=== PATIENT | female | born 1930 | race Caucasian/White ===

== ENCOUNTER 2017-10-28 11:25 | Emergency (ER) | payer MEDICARE, BC ==
[2017-10-28] MEDS ORDERED: traMADol 50 MG Tab PO ONE (11:26)
[2017-10-28 11:29] VITALS: BP 144/79
--- NOTE | 2017-10-28 11:57 | EDM.PDOC ---
ED HPI GENERAL MEDICAL PROBLEM - General Chief Complaint: Lower Extremity Injury/Pain Stated Complaint: left leg pain Time Seen by Provider: 10/28/17 11:40 Source of Information: Reports: Patient History Limitations: Reports: No Limitations - History of Present Illness INITIAL COMMENTS - FREE TEXT/NARRATIVE: Patient presents with left hip pain. States awoke from sleep today with pain. Has been having ongoing pain now and difficulty walking as a result. Has not had any recent falls or trauma. Does not lie on this side when she sleeps at all but feels pain with pushing on the left hip. She has hydrocodone at home but states does make her feel sick all over. She has not been travelling recently. Has not noted any swelling in her leg. Has arthritis in her joints. 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 No other changes as of late. Onset: Today, Sudden Duration: Hour(s): Location: Reports: Lower Extremity, Left Quality: Reports: Throbbing Severity: Moderate Improves with: Reports: Rest Worsens with: Reports: Movement Associated Symptoms: Reports: No Other Symptoms Left Leg Pain Score (Numeric/FACES): 7 - Related Data Allergies Allergy/AdvReac Type Severity Reaction Status Date / Time acetaminophen Allergy Stomach Verified 10/28/17 11:29 [From Darvocet-N 100] Upset propoxyphene napsylate Allergy Stomach Verified 10/28/17 11:29 [From Darvocet-N 100] Upset quinapril HCl [From Accupril] Allergy Cough Verified 10/28/17 11:29 rofecoxib [From Vioxx] Allergy Airway Verified 10/28/17 11:29 Tightness shellfish derived Allergy Cannot Verified 10/28/17 11:29 Remember sulfamethoxazole Allergy Dizziness Verified 10/28/17 11:29 [From Bactrim] trimethoprim [From Bactrim] Allergy Dizziness Verified 10/28/17 11:29 Home Meds: Home Meds Ca Cmb No.1/Vit D3/B-6/FA/B12 [Vitamin D3 1,000 Unit] 2,000 unit PO DAILY [History] Losartan [Cozaar] 100 mg PO DAILY 11/11/13 [History] Olopatadine [Patanol 0.1% Ophth Soln] 1 drop EYEBOTH BEDTIME PRN 11/11/13 [ History] Simvastatin [Zocor] 20 mg PO BEDTIME 11/11/13 [History] Diltiazem HCl [Diltiazem 24Hr ER] 120 mg PO DAILY 02/08/14 [History] Cyanocobalamin (Vitamin B12) [Vitamin B12] 1,000 mcg IM Q60D 02/26/14 [History] Potassium Chloride 20 meq PO DAILY 02/26/14 [History] Apixaban [Eliquis] 2.5 mg PO BID 08/23/14 [History] Sucralfate [Carafate] 1 gm PO BEDTIME 08/23/14 [History] hydrALAZINE [Apresoline] 25 mg PO TID PRN 08/23/14 [History] Albuterol Sulfate 3 ml INH Q4H PRN 10/28/17 [History] Albuterol Sulfate [Proair Hfa] 2 puff INH BID PRN 10/28/17 [History] Isosorbide Mononitrate [Imdur] 60 mg PO DAILY 10/28/17 [History] Metoprolol Tartrate 50 mg PO BID 10/28/17 [History] Pantoprazole Sodium 40 mg PO DAILY 10/28/17 [History] Triamcinolone Acetonide [Nasacort] 1 spray NASBOTH DAILY PRN 10/28/17 [History] Past Medical History HEENT History: Reports: Cataract, Hard of Hearing Cardiovascular History: Reports: Arrhythmia, Heart Murmur, High Cholesterol, Hypertension Respiratory History: Reports: Asthma Gastrointestinal History: Reports: None Genitourinary History: Reports: UTI, Recurrent Musculoskeletal History: Reports: Arthritis, Fracture, Osteoarthritis, Osteoporosis Psychiatric History: Reports: None Endocrine/Metabolic History: Reports: Osteoporosis, Vitamin D Deficiency Hematologic History: Reports: B12 Deficiency Oncologic (Cancer) History: Reports: None - Infectious Disease History Infectious Disease History: Reports: Chicken Pox, Shingles - Past Surgical History GI Surgical History: Reports: Benedicto Fundoplication Oncologic Surgical History: Reports: Biopsy of Breast Social & Family History - Family History Family Medical History: Noncontributory - Tobacco Use Smoking Status *Q: Never Smoker Second Hand Smoke Exposure: No - Caffeine Use Caffeine Use: Reports: Coffee - Alcohol Use Days Per Week of Alcohol Use: 0 - Recreational Drug Use Recreational Drug Use: No Review of Systems - Review of Systems Review Of Systems: See Below Constitutional: Reports: No Symptoms Eyes: Reports: No Symptoms Ears: Reports: No Symptoms Nose: Reports: No Symptoms Mouth/Throat: Reports: No Symptoms Respiratory: Reports: No Symptoms Cardiovascular: Reports: No Symptoms GI/Abdominal: Reports: No Symptoms Musculoskeletal: Reports: Leg Pain, Joint Pain Skin: Reports: No Symptoms Neurological: Reports: No Symptoms Psychiatric: Reports: No Symptoms ED EXAM, GENERAL - Physical Exam Exam: See Below Exam Limited By: No Limitations General Appearance: Alert, WD/WN, No Apparent Distress Neck: Normal Inspection, Supple, Non-Tender, Full Range of Motion Respiratory/Chest: No Respiratory Distress, Lungs Clear, Normal Breath Sounds Cardiovascular: Regular Rate, Rhythm Extremities: Normal Inspection, Limited Range of Motion (pain with adduction and flexion of left hip). No: Pedal Edema Neurological: Alert, Oriented Psychiatric: Normal Affect, Normal Mood Skin Exam: Warm, Dry Course - Vital Signs Last Recorded V/S: Last Vital Signs Temp 98.3 F 10/28/17 11:26 Pulse 54 L 10/28/17 11:26 Resp 20 10/28/17 11:26 BP 144/79 H 10/28/17 11:26 Pulse Ox 97 10/28/17 11:26 - Orders/Labs/Meds Orders: Active Orders 24 hr Category Date Time Status Hip Min 2V or 3V w Pelvis Lt [CR] Stat Exams 10/28/17 11:51 Taken - Re-Assessments/Exams Free Text/Narrative Re-Assessment/Exam: 10/28/17 12:29 Patient xrays do not show any new acute changes. Discussed pursuing injection in hip tomorrow by Dr. Lay or hip injection through radiology. Possible PT. Wants to try tramadol or use her hydrocodone for pain first and see how she does. Unable to take NSAIDs due to pain as she is on Eliquis and doesn't tolerate them. Departure - Departure Time of Disposition: 12:30 Disposition: Home, Self-Care 01 Condition: Fair Clinical Impression: Trochanteric bursitis of left hip - Discharge Information Forms: ED Department Discharge Additional Instructions: 1. Rest 2. Aspercreme to hip as needed 3. Consider injection or Physical therapy for resolution of discomfort 4. Tramadol 50mg 1-2 tabs every 6 hours as needed for pain 5. Use hydrocodone for more severe pain if tolerate 6. Contact clinic tomorrow if would like to proceed with either injection or PT or if any questions. - My Orders Last 24 Hours: My Active Orders 10/28/17 11:51 Hip Min 2V or 3V w Pelvis Lt [CR] Stat - Assessment/Plan Last 24 Hours: My Active Orders 10/28/17 11:51 Hip Min 2V or 3V w Pelvis Lt [CR] Stat
[2017-10-28] MEDS ORDERED: Take Home: traMADol 50 MG, 4 Tab Pack PO ONE (12:30)
== END 2017-10-28 12:40 | disposition home or self-care (01) ==
LOC: CC.ED 11:25
DX: M70.62 Trochanteric bursitis, left hip (principal); E78.00 Pure hypercholesterolemia, unspecified; I10 Essential (primary) hypertension; J45.909 Unspecified asthma, uncomplicated; Z88.2 Allergy status to sulfonamides; Z91.013 Allergy to seafood
CPT/HCPCS: 73502; 99283; A9270

== ENCOUNTER 2017-12-31 11:35 | Observation (INO) | payer MEDICARE, BC ==
[2017-12-31] MEDS ORDERED: Acetaminophen 325 MG Tab PO PRN (12:13)
[2017-12-31] MEDS ORDERED: Sodium Chloride 0.9% 10 ML Syringe FLUSH PRN (12:13)
[2017-12-31] MEDS ORDERED: Ondansetron 4 MG Tab.DIS PO PRN (12:13)
[2017-12-31] MEDS ORDERED: Ondansetron 4 MG/2 ML SDV IV PRN (12:13)
[2017-12-31] MEDS ORDERED: cloNIDine 0.1 MG Tab PO PRN (12:13)
[2017-12-31 12:51] LABS: CHLORIDE,CL 104 mEq/L (98-106); SODIUM,NA 139 mEq/L (136-145)
[2017-12-31] MEDS: Enoxaparin 40 MG/0.4 ML Syringe SUBCUT SCH (13:24)
[2017-12-31] MEDS ORDERED: Albuterol 0.042% 1.25 MG/3 ML Neb Soln INH PRN (19:09)
[2017-12-31] MEDS ORDERED: [UNRECOGNIZED DRUG - REMARK] EYEBOTH PRN (19:09)
[2017-12-31] MEDS ORDERED: Acetaminophen 500 MG Tab PO PRN (19:09)
[2017-12-31] MEDS ORDERED: Albuterol 8 GM Inhaler INH PRN (19:09)
[2017-12-31] MEDS: Apixaban 5 MG Tab PO SCH (20:11)
[2017-12-31] MEDS: Simvastatin 20 MG Tab PO SCH (20:12)
[2017-12-31] MEDS: Metoprolol Tartrate 50 MG Tab PO SCH (20:12)
[2017-12-31] MEDS: Sucralfate 1 GM Tab PO SCH (20:12)
[2017-12-31] MEDS: Pantoprazole 40 MG Tab.CR PO SCH (20:38)
[2018-01-01] MEDS ORDERED: Diltiazem 120 MG Cap.CD PO SCH (08:00)
[2018-01-01] MEDS: Losartan 100 MG Tab PO SCH (08:18)
[2018-01-01] MEDS: Isosorbide Mononitrate 60 MG Tab.ER PO SCH (08:19)
[2018-01-01] MEDS: Metoprolol Tartrate 50 MG Tab PO SCH ×3 (08:44→19:28)
[2018-01-01] MEDS: Fluticasone Propionate Nasal Spray 16 GM Bottle NASBOTH SCH (08:45)
[2018-01-01] MEDS: Potassium Chloride 10 MEQ Tab.ER PO SCH (11:06)
[2018-01-01] MEDS: Aspirin 81 MG Tab.EC PO SCH (11:06)
[2018-01-01] MEDS: Apixaban 5 MG Tab PO SCH ×2 (11:06→19:29)
[2018-01-01] MEDS: Enoxaparin 40 MG/0.4 ML Syringe SUBCUT SCH (11:07)
--- NOTE | 2018-01-01 12:01 | PCM.PN ---
- General Info Date of Service: 01/01/18 Admission Dx/Problem (Free Text): Hypertensive Urgency Functional Status: Reports: Pain Controlled, Tolerating Diet, Ambulating - Review of Systems General: Denies: Fever, Weakness, Fatigue HEENT: Reports: Headaches. Denies: Ear Pain, Sinus Congestion Pulmonary: Denies: Shortness of Breath, Cough Cardiovascular: Denies: Chest Pain, Edema, Lightheadedness Gastrointestinal: Denies: Abdominal Pain, Decreased Appetite, Nausea, Vomiting Genitourinary: Reports: No Symptoms Musculoskeletal: Reports: No Symptoms Skin: Reports: No Symptoms Neurological: Reports: No Symptoms - Patient Data Vitals - Most Recent: Last Vital Signs Temp 98.5 F 01/01/18 08:00 Pulse 54 L 01/01/18 09:35 Resp 16 01/01/18 08:00 BP 200/84 H 01/01/18 09:35 Pulse Ox 98 01/01/18 08:00 Weight - Most Recent: 93 lb Lab Results Last 24 Hours: Laboratory Results - last 24 hr 12/31/17 12/31/17 Range/Units 12:30 12:30 WBC 4.3 L (5.0-10.0) 10^3/uL RBC 3.83 L (4.00-5.50) 10^6/uL Hgb 11.3 L (12.0-16.0) g/dL Hct 35.2 L (37.0-47.0) % MCV 91.9 (82.0-94.0) fL MCH 29.5 (27.0-32.0) pg MCHC 32.1 L (33.0-38.0) g/dL RDW Coeff of [place] 13.4 (11.0-15.0) % Plt Count 185 (150-400) 10^3/uL Neut % (Auto) 59.8 (35-85) % Lymph % (Auto) 27.3 (10-55) % [place] % (Auto) 8.9 (0-16) % Eos % (Auto) 3.3 (0-5) % Baso % (Auto) 0.7 (0-3) % Neut # (Auto) 2.57 (1.80-7.00) 10^3/uL Lymph # (Auto) 1.17 (1.00-4.80) 10^3/uL [place] # (Auto) 0.38 (0.00-0.80) 10^3/uL Eos # (Auto) 0.14 (0.00-0.45) 10^3/uL Baso # (Auto) 0.03 10^3/uL Sodium 139 (136-145) mEq/L Potassium 3.9 (3.5-5.0) mEq/L Chloride 104 (98-106) mEq/L Carbon Dioxide 27 (21-32) mmol/L BUN 11 (7-18) mg/dL Creatinine 0.8 (0.6-1.0) mg/dL Est Cr Clr Drug Dosing 34.24 mL/min Estimated GFR (MDRD) > 60 (>=60) mL/min Glucose 115 H (75-99) mg/dL Calcium 9.1 (8.4-10.1) mg/dL Troponin I < 0.017 (0.00-0.06) ng/mL Med Orders - Current: Current Medications Acetaminophen (Tylenol) 650 mg PO Q4H PRN PRN Reason: Pain (Mild 1-3)/fever Acetaminophen (Tylenol Extra Strength) 500 mg PO Q6H PRN PRN Reason: Pain/Fever Albuterol (Proventil Neb Soln) 1.25 mg INH Q4H PRN PRN Reason: Dyspnea Albuterol (Ventolin Hfa) 0 gm INH BID PRN PRN Reason: Dyspnea Amlodipine Besylate (Norvasc) 5 mg PO BEDTIME [facility] Apixaban (Eliquis) 2.5 mg PO BID [facility] Last Admin: 01/01/18 11:06 Dose: 2.5 mg Aspirin (Halfprin) 81 mg PO DAILY [facility] Last Admin: 01/01/18 11:06 Dose: 81 mg Clonidine HCl (Catapres) 0 mg PO Q2H PRN PRN Reason: Hypertension Last Admin: 12/31/17 12:41 Dose: 0.1 mg Enoxaparin Sodium (Lovenox) 40 mg SUBCUT DAILY@1200 [facility] Last Admin: 01/01/18 11:07 Dose: 40 mg Fluticasone Propionate (Flonase) 0 gm NASBOTH DAILY [facility] Last Admin: 01/01/18 08:45 Dose: Not Given Isosorbide Mononitrate (Imdur) 60 mg PO DAILY [facility] Last Admin: 01/01/18 08:19 Dose: 60 mg Losartan Potassium (Cozaar) 100 mg PO DAILY [facility] Last Admin: 01/01/18 08:18 Dose: 100 mg Metoprolol Tartrate (Lopressor) 50 mg PO BID [facility] Last Admin: 01/01/18 09:35 Dose: 50 mg Non-FormPatanol (0.1% Ophth Soln) 0 drop EYEBOTH BEDTIME PRN PRN Reason: Pain Ondansetron HCl (Zofran Odt) 4 mg PO Q4H PRN PRN Reason: nausea, able to take PO Ondansetron HCl (Zofran) 4 mg IV Q4H PRN PRN Reason: Nausea/Vomiting Pantoprazole Sodium (Protonix) 40 mg PO BEDTIME [facility] Last Admin: 12/31/17 20:38 Dose: 40 mg Potassium Chloride (Klor-Con 10) 20 meq PO DAILY [facility] Last Admin: 01/01/18 11:06 Dose: 20 meq Simvastatin (Zocor) 20 mg PO BEDTIME [facility] Last Admin: 12/31/17 20:12 Dose: Not Given Sodium Chloride (Saline Flush) 10 ml FLUSH ASDIRECTED PRN PRN Reason: Keep Vein Open Sucralfate (Carafate) 1 gm PO BEDTIME [facility] Last Admin: 12/31/17 20:12 Dose: 1 gm Discontinued Medications Diltiazem HCl (Cardizem Cd) 120 mg PO DAILY [facility] Last Admin: 01/01/18 08:19 Dose: 120 mg - Exam General: Alert, Oriented HEENT: Mucous Membr. Moist/[place] Neck: Supple Lungs: Clear to Auscultation, Normal Respiratory Effort Cardiovascular: Regular Rate, Regular Rhythm GI/Abdominal Exam: Normal Bowel Sounds, Soft, Non-Tender Extremities: Normal Inspection, No Pedal Edema Skin: Warm, Dry Neurological: No New Focal Deficit - Problem List & Annotations (1) Hypertensive urgency SNOMED Code(s): 695357729 Code(s): I16.0 - HYPERTENSIVE URGENCY Status: Acute Priority: High Current Visit: Yes - Problem List Review Problem List Initiated/Reviewed/Updated: Yes - My Orders Last 24 Hours: My Active Orders 12/31/17 12:13 Patient Status [ADT] Routine Oxygen Therapy [RC] .PRN Up ad Mi [RC] .PRN Chest 2V [CR] Stat Acetaminophen [Tylenol] 650 mg PO Q4H PRN Ondansetron [Zofran ODT] 4 mg PO Q4H PRN Ondansetron [Zofran] 4 mg IV Q4H PRN Sodium Chloride 0.9% [Saline Flush] 10 ml FLUSH ASDIRECTED PRN cloNIDine [Catapres] See Dose Instructions PO Q2H PRN Saline Lock Insert [OM.PC] Routine 12/31/17 12:15 Cardiac Monitoring [RC] 0800,199912/31/17 12:30 Enoxaparin [Lovenox] 40 mg SUBCUT DAILY@1200 12/31/17 Lunch 2 Gram Sodium Diet [DIET] 01/01/18 10:00 VL Duplex Renal Comp [US] Routine 01/01/18 12:00 Vital Signs [RC] 0000,0400,0800,1200,1599,199901/01/18 20:00 amLODIPine [Norvasc] 5 mg PO BEDTIME - Assessment Assessment:: Hypertensive urgency - Plan Plan:: Patient feeling better today. States has been experiencing headaches when her blood pressure has been high. This am, pulse in the 50s but systolic blood pressure continues to be high, over 200. Patient is currently on 4 blood pressure meds, was given additional Clonidine yesterday with a huge drop in her blood pressure. Was asymptomatic during this time. Labs normal. Is having renal artery ultrasound this am. Will stop patient's Cardizem. Continue Losartan, ImDur and Metoprolol and add Norvasc at night. Continue to monitor. Probable discharge in am.
[2018-01-01] MEDS: Sucralfate 1 GM Tab PO SCH (19:28)
[2018-01-01] MEDS: Pantoprazole 40 MG Tab.CR PO SCH (19:30)
[2018-01-01] MEDS ORDERED: amLODIPine 10 MG Tab PO SCH (20:00)
[2018-01-01] MEDS: Simvastatin 20 MG Tab PO SCH (21:04)
[2018-01-02] MEDS: Apixaban 5 MG Tab PO SCH (07:44)
[2018-01-02] MEDS: Metoprolol Tartrate 50 MG Tab PO SCH (07:45)
[2018-01-02] MEDS: Isosorbide Mononitrate 60 MG Tab.ER PO SCH (07:45)
[2018-01-02] MEDS: Potassium Chloride 10 MEQ Tab.ER PO SCH (07:45)
[2018-01-02] MEDS: Losartan 100 MG Tab PO SCH (07:45)
[2018-01-02] MEDS: Fluticasone Propionate Nasal Spray 16 GM Bottle NASBOTH SCH (07:46)
[2018-01-02] MEDS: Aspirin 81 MG Tab.EC PO SCH (07:46)
[2018-01-02] MEDS: Enoxaparin 40 MG/0.4 ML Syringe SUBCUT SCH (11:46)
[2018-01-02 12:58] VITALS: BP 154/67
--- NOTE | 2018-01-02 15:31 | PCM.DCSUM1 ---
Discharge Summary - Hospital Course Free Text/Narrative:: Patient admitted from clinic by Dr. Lay with hypertensive urgency. Routinely monitors her blood pressure at home and had been doing well until 4 days prior to admission. Patient states she feels "off" when her blood pressure is up. Had been experiencing headaches, but no chest pain or shortness of breath. Does routinely check her blood pressure at home and systolic blood pressure is up over 200. She was admitted for further work up, EKG, chest xray and labs. Renal artery ultrasound ordered. Labs all essentially negative on admit. - Discharge Data Discharge Date: 01/02/18 Discharge Disposition: Home, Self-Care 01 Condition: Good - Discharge Diagnosis/Problem(s) (1) Hypertensive urgency SNOMED Code(s): 473811384 ICD Code: I16.0 - HYPERTENSIVE URGENCY Status: Acute Priority: High - Patient Summary/Data Complications: none Hospital Course: Patient admitted for further work up for hypertensive urgency. She did have a clonidine on admit and had significant drop in her blood pressure. She feels good. No further headaches. Did adjust blood pressure medications, stopped Cardizem and started Norvasc. Renal artery ultrasound done which does not show stenosis. Labs all normal. Systolic blood pressure is now around 170. Will discharge home on Norvasc and her usual blood pressure meds, stop Cardizem. Follow up with Dr. Lay on Sunday. Can use clonidine if blood pressure gets over 200 at home. - Patient Instructions Diet: Low Sodium Activity: As Tolerated - Discharge Plan Prescriptions/Med Rec: amLODIPine Besylate [Amlodipine Besylate] 5 mg PO DAILY #30 tablet cloNIDine [Catapres] 0.1 mg PO Q2H PRN #30 tablet PRN Reason: Hypertension Home Medications: Home Meds Ca Cmb No.1/Vit D3/B-6/FA/B12 [Vitamin D3 1,000 Unit] 2,000 unit PO DAILY [History] Losartan [Cozaar] 100 mg PO DAILY 11/11/13 [History] Olopatadine [Patanol 0.1% Ophth Soln] 1 drop EYEBOTH BEDTIME PRN 11/11/13 [ History] Simvastatin [Zocor] 20 mg PO BEDTIME 11/11/13 [History] Cyanocobalamin (Vitamin B12) [Vitamin B12] 1,000 mcg IM Q60D 02/26/14 [History] Potassium Chloride 20 meq PO DAILY 02/26/14 [History] Apixaban [Eliquis] 2.5 mg PO BID 08/23/14 [History] Sucralfate [Carafate] 1 gm PO BEDTIME 08/23/14 [History] Albuterol Sulfate 3 ml INH Q4H PRN 10/28/17 [History] Albuterol Sulfate [Proair Hfa] 2 puff INH BID PRN 10/28/17 [History] Isosorbide Mononitrate [Imdur] 60 mg PO DAILY 10/28/17 [History] Metoprolol Tartrate 50 mg PO BID 10/28/17 [History] Pantoprazole Sodium 40 mg PO DAILY 10/28/17 [History] Acetaminophen [Tylenol Extra Strength] 500 mg PO Q6H PRN 12/31/17 [History] Aspirin [Lo-Dose Aspirin EC] 81 mg PO DAILY 12/31/17 [History] Triamcinolone Acetonide [Nasacort AQ [place]] 1 spray RUCHI DAILY 12/31/17 [History] amLODIPine Besylate [Amlodipine Besylate] 5 mg PO DAILY #30 tablet 01/02/18 [Rx] cloNIDine [Catapres] 0.1 mg PO Q2H PRN #30 tablet 01/02/18 [Rx] Patient Handouts: Hypertension Referrals: Rock Lay MD [Primary Care Provider] - (See Dr. Lay in [place] on Sunday) - Discharge Summary/Plan Comment DC Time >30 min.: No - General Info Date of Service: 01/02/18 Admission Dx/Problem (Free Text: Hypertensive Urgency Functional Status: Reports: Pain Controlled, Tolerating Diet, Ambulating - Review of Systems General: Reports: No Symptoms HEENT: Denies: Ear Pain, Sinus Congestion, Rhinitis Pulmonary: Denies: Shortness of Breath, Cough, Wheezing Cardiovascular: Denies: Chest Pain, Edema, Lightheadedness Gastrointestinal: Denies: Abdominal Pain, Nausea, Vomiting Genitourinary: Reports: No Symptoms Musculoskeletal: Reports: No Symptoms Skin: Reports: No Symptoms Neurological: Reports: No Symptoms - Patient Data Vitals - Most Recent: Last Vital Signs Temp 98.2 F 01/02/18 12:00 Pulse 61 01/02/18 12:00 Resp 16 01/02/18 12:00 BP 154/67 H 01/02/18 12:00 Pulse Ox 96 01/02/18 12:00 Weight - Most Recent: 93 lb Med Orders - Current: Current Medications Discontinued Medications Acetaminophen (Tylenol) 650 mg PO Q4H PRN PRN Reason: Pain (Mild 1-3)/fever Acetaminophen (Tylenol Extra Strength) 500 mg PO Q6H PRN PRN Reason: Pain/Fever Albuterol (Proventil Neb Soln) 1.25 mg INH Q4H PRN PRN Reason: Dyspnea Albuterol (Ventolin Hfa) 0 gm INH BID PRN PRN Reason: Dyspnea Amlodipine Besylate (Norvasc) 5 mg PO BEDTIME [facility] Last Admin: 01/01/18 19:31 Dose: 5 mg Apixaban (Eliquis) 2.5 mg PO BID [facility] Last Admin: 01/02/18 07:44 Dose: 2.5 mg Aspirin (Halfprin) 81 mg PO DAILY [facility] Last Admin: 01/02/18 07:46 Dose: 81 mg Clonidine HCl (Catapres) 0 mg PO Q2H PRN PRN Reason: Hypertension Last Admin: 12/31/17 12:41 Dose: 0.1 mg Diltiazem HCl (Cardizem Cd) 120 mg PO DAILY [facility] Last Admin: 01/01/18 08:19 Dose: 120 mg Enoxaparin Sodium (Lovenox) 40 mg SUBCUT DAILY@1200 [facility] Last Admin: 01/02/18 11:46 Dose: 40 mg Fluticasone Propionate (Flonase) 0 gm NASBOTH DAILY [facility] Last Admin: 01/02/18 07:46 Dose: 2 sprays Isosorbide Mononitrate (Imdur) 60 mg PO DAILY [facility] Last Admin: 01/02/18 07:45 Dose: 60 mg Losartan Potassium (Cozaar) 100 mg PO DAILY [facility] Last Admin: 01/02/18 07:45 Dose: 100 mg Metoprolol Tartrate (Lopressor) 50 mg PO BID [facility] Last Admin: 01/02/18 07:45 Dose: 50 mg Non-FormPatanol (0.1% Ophth Soln) 0 drop EYEBOTH BEDTIME PRN PRN Reason: Pain Ondansetron HCl (Zofran Odt) 4 mg PO Q4H PRN PRN Reason: nausea, able to take PO Ondansetron HCl (Zofran) 4 mg IV Q4H PRN PRN Reason: Nausea/Vomiting Pantoprazole Sodium (Protonix) 40 mg PO BEDTIME [facility] Last Admin: 01/01/18 19:30 Dose: 40 mg Potassium Chloride (Klor-Con 10) 20 meq PO DAILY [facility] Last Admin: 01/02/18 07:45 Dose: 20 meq Simvastatin (Zocor) 20 mg PO BEDTIME [facility] Last Admin: 01/01/18 21:04 Dose: Not Given Sodium Chloride (Saline Flush) 10 ml FLUSH ASDIRECTED PRN PRN Reason: Keep Vein Open Sucralfate (Carafate) 1 gm PO BEDTIME [facility] Last Admin: 01/01/18 19:28 Dose: 1 gm - Exam General: Reports: Alert, Oriented HEENT: Reports: Mucous Membr. Moist/[place] Neck: Reports: Supple Lungs: Reports: Clear to Auscultation, Normal Respiratory Effort Cardiovascular: Reports: Regular Rate, Regular Rhythm GI/Abdominal Exam: Normal Bowel Sounds, Soft, Non-Tender Back Exam: Reports: Normal Inspection Extremities: Normal Inspection, No Pedal Edema Skin: Reports: Warm, Dry Neurological: Reports: No New Focal Deficit *Q Meaningful Use (DIS) - VTE *Q VTE Criteria *Q: - Stroke *Q Stroke Criteria *Q: - AMI *Q AMI Criteria *Q:
== END 2018-01-02 12:40 | disposition home or self-care (01) ==
LOC: CC.MS 12:11 → UNDOADMOB 12:11 → CC.MS 12:13
PROVIDERS: ADMIT Family Medicine; ATTEND Family Medicine
DX: I16.0 Hypertensive urgency (principal); I10 Essential (primary) hypertension; J45.909 Unspecified asthma, uncomplicated; K21.9 Gastro-esophageal reflux disease without esophagitis; E78.5 Hyperlipidemia, unspecified; E87.6 Hypokalemia; M81.0 Age-related osteoporosis without current pathological fracture; D51.0 Vitamin B12 deficiency anemia due to intrinsic factor deficiency; I48.91 Unspecified atrial fibrillation; Z79.01 Long term (current) use of anticoagulants; Z79.82 Long term (current) use of aspirin; Z79.51 Long term (current) use of inhaled steroids; Z79.899 Other long term (current) drug therapy; Z88.0 Allergy status to penicillin; Z88.2 Allergy status to sulfonamides; Z88.8 Allergy status to other drugs, medicaments and biological substances; Z91.013 Allergy to seafood; Z98.890 Other specified postprocedural states; Z82.3 Family history of stroke; Z80.0 Family history of malignant neoplasm of digestive organs; Z80.3 Family history of malignant neoplasm of breast; Z83.3 Family history of diabetes mellitus
CPT/HCPCS: 36415; 71046; 80048; 84484; 85025; 93005; 93975; 96372; A9270-GY; G0378; J1650

== ENCOUNTER 2019-08-02 23:03 | Emergency (ER) | payer MEDICARE, BC ==
--- NOTE | 2019-08-02 23:12 | EDM.PDOC ---
ED HPI GENERAL MEDICAL PROBLEM - General Chief Complaint: Trauma Stated Complaint: fall Time Seen by Provider: 08/02/19 23:04 Source of Information: Reports: Patient, Family History Limitations: Reports: No Limitations - History of Present Illness INITIAL COMMENTS - FREE TEXT/NARRATIVE: This patient is an 89 year old female that presents to the ER via private vehicle. TRAUMA CODE CALLED. IV Placed. The patient reports that she was at home and tripped over a pair of jeans laying on the floor. The patient reports that she fell to the floor hitting her right face near right eye. Patient denies loc, headache, n, v, vision changes, neck pain, neck stiffness, cp, soa, abd pain, urinary/bowel incontinence, BUE pain, BLE pain. Patient ambulatory to the ER room without difficulty. Patient on Eliquis. CXR not performed due to no chest pain/injury/or dyspnea. Not indicated. Labs not drawn due to not on coumadin, no adb/chest pain, or ams. Also, fall was mechanical. Also no ekg ordered due to mechanical fall and no cp or dyspnea. Patient reports tetanus 3 years ago, UTD. Patient exposed to gown for exam. 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) Location: Reports: Face Front/Back Body Image: 1 - eccyhmosis 2 - skin tear Quality: Reports: Throbbing Severity: Mild Improves with: Reports: None Worsens with: Reports: None Associated Symptoms: Denies: Confusion, Chest Pain, Cough, cough w sputum, Diaphoresis, Fever/Chills, Headaches, Loss of Appetite, Malaise, Nausea/Vomiting , Rash, Seizure, Shortness of Breath, Syncope, Weakness Right Eye Pain Score (Numeric/FACES): 5 - Related Data Allergies Allergy/AdvReac Type Severity Reaction Status Date / Time acetaminophen Allergy Stomach Verified 08/02/19 23:09 [From Darvocet-N 100] Upset amoxicillin Allergy Diarrhea Verified 08/02/19 23:09 propoxyphene napsylate Allergy Stomach Verified 08/02/19 23:09 [From Darvocet-N 100] Upset quinapril HCl [From Accupril] Allergy Cough Verified 08/02/19 23:09 rofecoxib [From Vioxx] Allergy Airway Verified 08/02/19 23:09 Tightness shellfish derived Allergy Cannot Verified 08/02/19 23:09 Remember sulfamethoxazole Allergy Dizziness Verified 08/02/19 23:09 [From Bactrim] trimethoprim [From Bactrim] Allergy Dizziness Verified 08/02/19 23:09 Home Meds: Home Meds Losartan [Cozaar] 100 mg PO DAILY 11/11/13 [History] Olopatadine [Patanol 0.1% Ophth Soln] 1 drop EYEBOTH BEDTIME PRN 11/11/13 [ History] Simvastatin [Zocor] 20 mg PO BEDTIME 11/11/13 [History] Potassium Chloride 20 meq PO DAILY 02/26/14 [History] Apixaban [Eliquis] 2.5 mg PO BID 08/23/14 [History] Sucralfate [Carafate] 1 gm PO BEDTIME 08/23/14 [History] Albuterol Sulfate 3 ml INH Q4H PRN 10/28/17 [History] Albuterol Sulfate [Proair Hfa] 2 puff INH BID PRN 10/28/17 [History] Isosorbide Mononitrate [Imdur] 60 mg PO DAILY 10/28/17 [History] Metoprolol Tartrate 50 mg PO BID 10/28/17 [History] Acetaminophen [Tylenol Extra Strength] 500 mg PO Q6H PRN 12/31/17 [History] Aspirin [Lo-Dose Aspirin EC] 81 mg PO DAILY 12/31/17 [History] Triamcinolone Acetonide [Nasacort AQ [place]] 1 spray RUCHI DAILY 12/31/17 [History] cloNIDine [Catapres] 0.1 mg PO Q2H PRN #30 tablet 01/02/18 [Rx] Cholecalciferol (Vitamin D3) [Vitamin D3] 2,000 unit PO DAILY 08/02/18 [History] Cyanocobalamin (Vitamin B12) [Vitamin B12] 1,000 mg IM Q30D 08/02/18 [History] amLODIPine Besylate [Amlodipine Besylate] 5 mg PO BEDTIME 08/02/18 [History] levoFLOXacin [Levaquin] 500 mg PO DAILY #7 tab 08/05/18 [Rx] Past Medical History HEENT History: Reports: Cataract, Hard of Hearing Cardiovascular History: Reports: Afib, Arrhythmia, Heart Murmur, High Cholesterol, Hypertension Respiratory History: Reports: Asthma Gastrointestinal History: Reports: None, Hiatal Hernia Genitourinary History: Reports: UTI, Recurrent Musculoskeletal History: Reports: Arthritis, Back Pain, Chronic, Fracture, Osteoarthritis, Osteoporosis Psychiatric History: Reports: None Endocrine/Metabolic History: Reports: Osteoporosis, Vitamin D Deficiency Hematologic History: Reports: Anemia, B12 Deficiency, Other (See Below) Other Hematologic History: plasma transfusion Oncologic (Cancer) History: Reports: None - Infectious Disease History Infectious Disease History: Reports: Chicken Pox, Shingles - Past Surgical History HEENT Surgical History: Reports: Cataract Surgery GI Surgical History: Reports: Colonoscopy, EGD, Hernia Repair/Other, Benedicto Fundoplication Musculoskeletal Surgical History: Reports: Shoulder Replacement Oncologic Surgical History: Reports: Biopsy of Breast Social & Family History - Family History Family Medical History: Noncontributory - Caffeine Use Caffeine Use: Reports: Coffee Review of Systems - Review of Systems Review Of Systems: See Below Constitutional: Reports: No Symptoms Eyes: Reports: No Symptoms, Other (right upper cheek below right eye pain). Denies: Blurred Vision, Pain, Vision Change Ears: Reports: No Symptoms Nose: Reports: No Symptoms Mouth/Throat: Reports: No Symptoms Respiratory: Reports: No Symptoms. Denies: Shortness of Breath, Pleuritic Chest Pain, Hemoptysis Cardiovascular: Reports: No Symptoms. Denies: Chest Pain, Edema, Lightheadedness, Palpitations, Syncope GI/Abdominal: Reports: No Symptoms. Denies: Nausea, Vomiting Genitourinary: Reports: No Symptoms Musculoskeletal: Denies: Neck Pain, Shoulder Pain, Arm Pain, Back Pain, Hand Pain, Leg Pain, Foot Pain, Joint Pain, Joint Swelling, Muscle Pain, Muscle Stiffness Skin: Reports: Wound (right inferior orbital) Neurological: Reports: No Symptoms. Denies: Confusion, Dizziness, Headache, Seizure, Syncope, Change in Speech, Gait Disturbance Psychiatric: Reports: No Symptoms ED EXAM, GENERAL - Physical Exam Exam: See Below Exam Limited By: No Limitations General Appearance: Alert, WD/WN, No Apparent Distress, Thin Eye Exam: Bilateral Eye: EOMI, Normal Inspection, PERRL Ears: Normal External Exam, Normal Canal, Hearing Grossly Normal, Normal TMs Ear Exam: Bilateral Ear: Auricle Normal, Canal Normal, TM normal Nose: Normal Inspection, Normal Mucosa, No Blood. No: Nasal Tenderness, Nasal Deformity, Nasal Swelling, Nasal Flaring Throat/Mouth: Normal Inspection, Normal Lips, Normal Gums, Normal Oropharynx, Normal Voice, No Airway Compromise. No: Normal Teeth (missing teeth, poor dentation, chronic, not from trauma. ) Head: Facial Swelling (Right inferior orbital), Facial Tenderness (Right inferior orbital mild with skin tear and ecchymosis) Neck: Normal Inspection, Supple, Non-Tender, Full Range of Motion Respiratory/Chest: No Respiratory Distress, Lungs Clear, Normal Breath Sounds, No Accessory Muscle Use, Chest Non-Tender Cardiovascular: Normal Peripheral Pulses, Regular Rate, Rhythm, No Edema, No Gallop, No JVD, No Murmur, No Rub Peripheral Pulses: 2+: Posterior Tibial (L), Posterior Tibial (R), Dorsalis Pedis (L), Dorsalis Pedis (R) GI/Abdominal: Normal Bowel Sounds, Soft, Non-Tender, No Organomegaly, No Distention, No Abnormal Bruit, No Mass, Pelvis Stable (Female) Exam: Deferred Rectal (Female) Exam: Deferred Back Exam: Normal Inspection, Full Range of Motion. No: Decreased Range of Motion, Muscle Spasm, Paraspinal Tenderness, Vertebral Tenderness Extremities: Normal Inspection, Normal Range of Motion, Non-Tender, No Pedal Edema, Normal Capillary Refill Neurological: Alert, Oriented, Normal Cognition, Normal Gait, No Motor/Sensory Deficits Psychiatric: Normal Affect, Normal Mood Skin Exam: Warm, Dry, Normal Color, No Rash, Ecchymosis (Right inferior orbital mild with skin tear and ecchymosis), Wound/Incision (Right inferior orbital mild with skin tear and ecchymosis. Not suturable. ) Course - Orders/Labs/Meds Orders: Active Orders 24 hr Category Date Time Status Head wo Cont [CT] Stat Exams 08/02/19 23:11 Taken Max Facial Sinus wo Cont [CT] Stat Exams 08/02/19 23:11 Taken - Radiology Interpretation Free Text/Narrative:: CT Head: No acute bleed or fx CT Facial: No fx, poor dentation with missing teeth CT Results Date: 08/03/19 CT Results Time: 00:16 Departure - Departure Time of Disposition: 00:16 Disposition: Home, Self-Care 01 Condition: Good Clinical Impression: Skin tear Contusion of face Qualifiers: Encounter type: initial encounter Qualified Code(s): S00.83XA - Contusion of other part of head, initial encounter - Discharge Information *PRESCRIPTION DRUG MONITORING PROGRAM REVIEWED*: Not Applicable *COPY OF PRESCRIPTION DRUG MONITORING REPORT IN PATIENT CORKY: Not Applicable Instructions: Skin Tear Care, [id number], Facial or Scalp Contusion, Head Injury, Adult, [id number] Referrals: Rock Lay MD [Primary Care Provider] - Forms: ED Department Discharge Additional Instructions: Followup with your primary care provider Return to the ER for worsening of condition or any emergent concerns Please return like we discussed: For confusion, worst headache, vomiting, not waking up, or any other concerns Keep wound clean, may apply neosporin - My Orders Last 24 Hours: My Active Orders 08/02/19 23:11 Head wo Cont [CT] Stat Max Facial Sinus wo Cont [CT] Stat - Assessment/Plan Last 24 Hours: My Active Orders 08/02/19 23:11 Head wo Cont [CT] Stat Max Facial Sinus wo Cont [CT] Stat Plan: PLEASE SEE RN NOTE FOR PFSH.
[2019-08-03 02:32] VITALS: BP 169/68; PULSE 67
== END 2019-08-03 00:20 | disposition home or self-care (01) ==
LOC: CC.ED 23:03
DX: S05.41XA Penetrating wound of orbit with or without foreign body, right eye, initial encounter (principal); I10 Essential (primary) hypertension; E78.00 Pure hypercholesterolemia, unspecified; J45.909 Unspecified asthma, uncomplicated; M19.90 Unspecified osteoarthritis, unspecified site; Z79.01 Long term (current) use of anticoagulants; Z88.6 Allergy status to analgesic agent; Z88.1 Allergy status to other antibiotic agents; Z88.8 Allergy status to other drugs, medicaments and biological substances; Z88.2 Allergy status to sulfonamides; Z91.013 Allergy to seafood; Z79.899 Other long term (current) drug therapy; Z79.82 Long term (current) use of aspirin; W01.198A Fall on same level from slipping, tripping and stumbling with subsequent striking against other object, initial encounter
CPT/HCPCS: 70450; 70486; 99283-25; 99284

== ENCOUNTER → 2020-01-29 | Day surgery (SDC) | payer MEDICARE, BC ==
[~2020-01-29] MED LIST: Benzocaine 20% Oral Spray 59.2 ML Canister MUCMEM ONE; Lactated Ringers 1,000 ML IV SCH; Midazolam 1 MG/ML 2 ML SDV IV ONE; Midazolam 1 MG/ML 2 ML SDV ONE
[2020-01-29 12:27] VITALS: BP 124/78; PULSE 75
--- NOTE | 2020-01-29 16:31 | OR ---
DATE OF OPERATION: 01/29/2020 PREOPERATIVE DIAGNOSIS: DYSPHAGIA POST BENEDICTO FUNDOPLICATION. POSTOPERATIVE DIAGNOSIS: DYSPHAGIA POST BENEDICTO FUNDOPLICATION. SURGEON: Luiz Diallo MD PROCEDURE: ESOPHAGOGASTRODUODENOSCOPY WITH PHOTOGRAPHS. ANESTHESIA: IV Versed, conscious sedation, and local pharyngeal spray. FINDINGS: Recurrent hiatal hernia with the entire wrap within the mediastinal hernia sac. INDICATIONS: This 89-year-old female has had a prior Benedicto fundoplication. She states that really did not help her at all postoperatively and she has increasing dysphagia. She is referred for EGD. DESCRIPTION OF PROCEDURE: After adequate preparation, a gastroscope was inserted into the esophagus. This was passed down to the distal esophagus and easily passed through the EG junction into the upper portion of the stomach, which seems to be herniated and I can see a configuration that would represent a wrap, and I really had a difficult time finding the opening from the herniated stomach portion through this opening down into the main body of the stomach and pylorus. Eventually, I was able to manipulate the scope around the wrapped portion. The rest of the stomach appeared to be normal. Her dysphagia was caused by recurrent hiatal hernia including the wrapped portion. This was not due to scar tissue or tumor. Air was suctioned from the stomach and the scope removed. ASSESSMENT AND OPERATIVE FINDINGS: Recurrent hiatal hernia. RECOMMENDATIONS: This patient's dysphagia is due to the recurrent hernia. She has significant risk, however, for reoperation, although only weighing 85 pounds, I think this could be done laparoscopically, but would need more support than can be provided here in [place]. It would be helpful to repeat an upper GI looking at the position of this hernia and how narrow the opening is into the main body of the stomach. Then, I would refer her on to experienced General Surgery for consideration of recurrent surgery. BRUCE/HEMAL /[id number]
== END ==
LOC: CC.SDS 08:37
PROVIDERS: ATTEND Surgery
DX: K44.9 Diaphragmatic hernia without obstruction or gangrene (principal); I10 Essential (primary) hypertension; E78.5 Hyperlipidemia, unspecified; M81.0 Age-related osteoporosis without current pathological fracture; I48.91 Unspecified atrial fibrillation; J45.909 Unspecified asthma, uncomplicated; K21.9 Gastro-esophageal reflux disease without esophagitis; Z98.84 Bariatric surgery status; Z88.1 Allergy status to other antibiotic agents; Z88.8 Allergy status to other drugs, medicaments and biological substances; Z91.013 Allergy to seafood; Z88.6 Allergy status to analgesic agent
CPT/HCPCS: 43235; J2250; J7120

== ENCOUNTER 2020-04-24 11:06 | Inpatient (IN) | payer MEDICARE, BC ==
--- NOTE | 2020-04-24 11:45 | EDM.PDOC ---
ED HPI GENERAL MEDICAL PROBLEM - General Chief Complaint: Cardiovascular Problem Stated Complaint: "my BP is high" Time Seen by Provider: 04/24/20 11:17 Source of Information: Reports: Patient History Limitations: Reports: No Limitations - History of Present Illness INITIAL COMMENTS - FREE TEXT/NARRATIVE: This patient is an 89 year old female that presents to the ER. Patient reports that this morning she was sitting at her table when she felt like her BP was up. She reports that her head was "foggy" and a little bit of a headache. Patient reports that this is what happens when her blood pressure is up. Patient reports that back in January she was admitted to [facility] and had her BP medications adjusted. Patient reports she has been doing fine since then , until this morning. Patient denies having chest pain or shortness of breath. She denies unilateral weaknesses. Stroke score is 0. GCS is 15. Onset: Today Onset Date: 04/24/20 Onset Time: 10:00 Location: Reports: Head Quality: Reports: Other ("fuzzy") Severity: Moderate Improves with: Reports: None Worsens with: Reports: None Associated Symptoms: Reports: Headaches, Weakness (generally). Denies: Confusion, Chest Pain, Cough, cough w sputum, Diaphoresis, Fever/Chills, Loss of Appetite, Malaise, Nausea/Vomiting, Rash, Seizure, Shortness of Breath, Syncope - Related Data Allergies Allergy/AdvReac Type Severity Reaction Status Date / Time rofecoxib [From Vioxx] Allergy Airway Verified 04/24/20 14:47 Tightness shellfish derived Allergy Cannot Verified 04/24/20 14:47 Remember amoxicillin AdvReac Diarrhea Verified 04/24/20 14:47 azithromycin AdvReac Dizziness Verified 04/24/20 14:47 propoxyphene napsylate AdvReac Stomach Verified 04/24/20 14:47 [From Darvocet-N 100] Upset quinapril HCl [From Accupril] AdvReac Cough Verified 04/24/20 14:47 sulfamethoxazole AdvReac Dizziness Verified 04/24/20 14:47 [From Bactrim] trimethoprim [From Bactrim] AdvReac Dizziness Verified 04/24/20 14:47 Home Meds: Home Meds Losartan [Cozaar] 100 mg PO DAILY 11/11/13 [History] Olopatadine [Patanol 0.1% Ophth Soln] 1 drop EYEBOTH BEDTIME PRN 11/11/13 [ History] Potassium Chloride 20 meq PO DAILY 02/26/14 [History] Apixaban [Eliquis] 2.5 mg PO BID 08/23/14 [History] Albuterol Sulfate 3 ml INH Q4H PRN 10/28/17 [History] Albuterol Sulfate [Proair Hfa] 2 puff INH BID PRN 10/28/17 [History] Isosorbide Mononitrate [Imdur] 60 mg PO DAILY 10/28/17 [History] Acetaminophen [Tylenol Extra Strength] 500 mg PO Q6H PRN 12/31/17 [History] Triamcinolone Acetonide [Nasacort AQ [place]] 1 spray RUCHI DAILY 12/31/17 [History] cloNIDine [Catapres] 0.1 mg PO Q2H PRN #30 tablet 01/02/18 [Rx] Cholecalciferol (Vitamin D3) [Vitamin D3] 2,000 unit PO DAILY 08/02/18 [History] Cyanocobalamin (Vitamin B12) [Vitamin B12] 1,000 mg IM Q30D 08/02/18 [History] Pantoprazole Sodium 40 mg PO DAILY 01/28/20 [History] dilTIAZem HCL [Diltiazem ER] 180 mg PO DAILY 01/28/20 [History] Famotidine [Acid Controller] 20 mg PO BEDTIME 04/24/20 [History] atorvaSTATin [Lipitor] 20 mg PO BEDTIME 04/24/20 [History] Past Medical History HEENT History: Reports: Cataract, Hard of Hearing Cardiovascular History: Reports: Afib, Arrhythmia, Heart Murmur, High Cholesterol, Hypertension Respiratory History: Reports: Asthma Gastrointestinal History: Reports: None, Hiatal Hernia Genitourinary History: Reports: UTI, Recurrent Musculoskeletal History: Reports: Arthritis, Back Pain, Chronic, Fracture, Osteoarthritis, Osteoporosis Psychiatric History: Reports: None Endocrine/Metabolic History: Reports: Osteoporosis, Vitamin D Deficiency Hematologic History: Reports: Anemia, B12 Deficiency, Other (See Below) Other Hematologic History: plasma transfusion Oncologic (Cancer) History: Reports: None - Infectious Disease History Infectious Disease History: Reports: Chicken Pox, Shingles - Past Surgical History HEENT Surgical History: Reports: Cataract Surgery GI Surgical History: Reports: Colonoscopy, EGD, Hernia Repair/Other, Benedicto Fundoplication Musculoskeletal Surgical History: Reports: Shoulder Replacement Oncologic Surgical History: Reports: Biopsy of Breast Social & Family History - Family History Family Medical History: Noncontributory - Tobacco Use Smoking Status *Q: Never Smoker - Caffeine Use Caffeine Use: Reports: None - Recreational Drug Use Recreational Drug Use: No ED ROS GENERAL - Review of Systems Review Of Systems: See Below Constitutional: Reports: Weakness (general). Denies: Fever HEENT: Reports: No Symptoms Respiratory: Reports: No Symptoms Cardiovascular: Reports: Blood Pressure Problem, Other ("head foggy") Endocrine: Reports: No Symptoms GI/Abdominal: Reports: No Symptoms. Denies: Abdominal Pain, Nausea, Vomiting : Reports: No Symptoms Musculoskeletal: Reports: No Symptoms Skin: Reports: No Symptoms Neurological: Reports: Headache. Denies: Dizziness, Numbness, Seizure, Syncope , Tingling, Tremors, Trouble Speaking, Difficulty Walking, Weakness, Change in Speech Psychiatric: Reports: No Symptoms Hematologic/Lymphatic: Reports: No Symptoms Immunologic: Reports: No Symptoms ED EXAM, GENERAL - Physical Exam Exam: See Below Exam Limited By: No Limitations General Appearance: Alert, WD/WN, No Apparent Distress Eye Exam: Bilateral Eye: Normal Inspection, PERRL Ears: Normal External Exam, Normal Canal, Hearing Grossly Normal, Normal TMs Ear Exam: Bilateral Ear: Auricle Normal, Canal Normal, TM normal Nose: Normal Inspection, Normal Mucosa, No Blood Throat/Mouth: Normal Inspection, Normal Lips, Normal Teeth, Normal Gums, Normal Oropharynx, Normal Voice Head: Atraumatic, Normocephalic Neck: Normal Inspection, Supple, Non-Tender, Full Range of Motion Respiratory/Chest: No Respiratory Distress, Lungs Clear, Normal Breath Sounds, No Accessory Muscle Use Cardiovascular: Normal Peripheral Pulses, No Edema, Irregularly Irregular (rate irregular and 120s rate) Peripheral Pulses: 2+: Radial (L), Radial (R), Posterior Tibial (L), Posterior Tibial (R) GI/Abdominal: Soft, Non-Tender Back Exam: Normal Inspection Extremities: Normal Inspection, Normal Range of Motion, Non-Tender, No Pedal Edema, Normal Capillary Refill Neurological: Alert, Oriented, CN II-XII Intact, Normal Cognition, Normal Gait, No Motor/Sensory Deficits Psychiatric: Normal Affect, Normal Mood Skin Exam: Warm, Dry, Intact, Normal Color, No Rash Lymphatic: No Adenopathy EKG INTERPRETATION EKG Date: 04/24/20 Time: 11:32 Rhythm: A-Fib Rate (Beats/Min): 121 Comparison: Change From Previous EKG (Patient does have hx of a-fib, but this is rapid today.) Course - Vital Signs Last Recorded V/S: Last Vital Signs Temp 97.5 F 04/24/20 11:07 Pulse 124 H 04/24/20 12:20 Resp 18 04/24/20 11:07 BP 169/95 H 04/24/20 12:20 Pulse Ox 99 04/24/20 11:07 - Orders/Labs/Meds Orders: Active Orders 24 hr Category Date Time Status Chest 2V [CR] Stat Exams 04/24/20 11:18 Taken Diltiazem [Cardizem] 100 mg Med 04/24/20 13:45 Active Sodium Chloride 0.9% [Normal Saline] 100 ml IV TITRATE Medication Orders Acetaminophen (Tylenol Extra Strength) 500 mg PO Q6H PRN PRN Reason: Pain/Fever Albuterol (Proventil Neb Soln) 1.25 mg INH Q4H PRN PRN Reason: Dyspnea Apixaban (Eliquis) 2.5 mg PO BID [facility] Atorvastatin Calcium (Lipitor) 20 mg PO BEDTIME [facility] Clonidine HCl (Catapres) 0.1 mg PO Q2H PRN PRN Reason: Hypertension Cyanocobalamin (Vitamin B12) 1,000,000 mcg IM Q30D [facility] Famotidine (Pepcid) 20 mg PO BEDTIME [facility] Diltiazem HCl 100 mg/ Sodium (Chloride) 100 mls @ 5 mls/hr IV TITRATE [facility]; Protocol Last Admin: 04/24/20 14:04 Dose: 5 mg/hr, 5 mls/hr Isosorbide Mononitrate (Imdur) 60 mg PO DAILY [facility] Losartan Potassium (Cozaar) 100 mg PO DAILY [facility] Non-Formulary Medication (Cholecalciferol (Vitamin D3) [Vitamin D3]) 2,000 unit PO DAILY [facility] Non-Formulary Medication (Diltiazem Hcl [Diltiazem 24hr Er]) 180 mg PO DAILY [facility] Non-Formulary Medication (Olopatadine [Patanol 0.1% Ophth Soln]) 1 drop EYEBOTH BEDTIME PRN PRN Reason: Pain Non-Formulary Medication (Potassium Chloride [Potassium Chloride]) 20 meq PO DAILY [facility] Non-Formulary Medication (Triamcinolone Acetonide) 1 spray RUCHI DAILY [facility] Ondansetron HCl (Zofran) 4 mg IV Q6H PRN PRN Reason: Nausea/Vomiting Pantoprazole Sodium (Protonix) 40 mg PO DAILY [facility] Labs: Laboratory Tests 04/24/20 04/24/20 04/24/20 Range/Units 11:17 11:17 11:19 WBC 3.7 L (5.0-10.0) 10^3/uL RBC 4.22 (4.00-5.50) 10^6/uL Hgb 13.0 (12.0-16.0) g/dL Hct 39.6 (37.0-47.0) % MCV 93.8 (82.0-94.0) fL MCH 30.8 (27.0-32.0) pg MCHC 32.8 L (33.0-38.0) g/dL RDW Coeff of Santana 13.0 (11.0-15.0) % Plt Count 179 (150-400) 10^3/uL Neut % (Auto) 58.9 (35-85) % Lymph % (Auto) 24.1 (10-55) % [place] % (Auto) 11.6 (0-16) % Eos % (Auto) 4.3 (0-5) % Baso % (Auto) 1.1 (0-3) % Neut # (Auto) 2.18 (1.80-7.00) 10^3/uL Lymph # (Auto) 0.89 L (1.00-4.80) 10^3/uL [place] # (Auto) 0.43 (0.00-0.80) 10^3/uL Eos # (Auto) 0.16 (0.00-0.45) 10^3/uL Baso # (Auto) 0.04 10^3/uL PT 10.5 (9.7-12.3) SEC INR 1.04 (0.92-1.18) Sodium 139 (136-145) mEq/L Potassium 3.9 (3.5-5.0) mEq/L Chloride 102 (98-106) mEq/L Carbon Dioxide 29 (21-32) mmol/L BUN 14 (7-18) mg/dL Creatinine 0.8 (0.6-1.0) mg/dL Est Cr Clr Drug Dosing 31.93 mL/min Estimated GFR (MDRD) > 60 (>=60) mL/min Glucose 101 H (75-99) mg/dL Calcium 9.0 (8.4-10.1) mg/dL Total Bilirubin 0.7 (0.0-1.0) mg/dL AST 20 (15-37) U/L ALT 18 (12-78) U/L Alkaline Phosphatase 105 (46-116) U/L Lactate Dehydrogenase 173 (100-190) U/L Creatine Kinase 105 (21-215) U/L Troponin I 0.028 (0.00-0.06) ng/mL NT-Pro-B Natriuret Pep 3288 H (0-1000) pg/mL Total Protein 7.1 (6.4-8.2) g/dL Albumin 3.7 (3.4-5.0) g/dL 04/24/ Range/Units 14:30 WBC (5.0-10.0) 10^3/uL RBC (4.00-5.50) 10^6/uL Hgb (12.0-16.0) g/dL Hct (37.0-47.0) % MCV (82.0-94.0) fL MCH (27.0-32.0) pg MCHC (33.0-38.0) g/dL RDW Coeff of [place]ana (11.0-15.0) % Plt Count (150-400) 10^3/uL Neut % (Auto) (35-85) % Lymph % (Auto) (10-55) % [place] % (Auto) (0-16) % Eos % (Auto) (0-5) % Baso % (Auto) (0-3) % Neut # (Auto) (1.80-7.00) 10^3/uL Lymph # (Auto) (1.00-4.80) 10^3/uL [place] # (Auto) (0.00-0.80) 10^3/uL Eos # (Auto) (0.00-0.45) 10^3/uL Baso # (Auto) 10^3/uL PT (9.7-12.3) SEC INR (0.92-1.18) Sodium (136-145) mEq/L Potassium (3.5-5.0) mEq/L Chloride (98-106) mEq/L Carbon Dioxide (21-32) mmol/L BUN (7-18) mg/dL Creatinine (0.6-1.0) mg/dL Est Cr Clr Drug Dosing mL/min Estimated GFR (MDRD) (>=60) mL/min Glucose (75-99) mg/dL Calcium (8.4-10.1) mg/dL Total Bilirubin (0.0-1.0) mg/dL AST (15-37) U/L ALT (12-78) U/L Alkaline Phosphatase (46-116) U/L Lactate Dehydrogenase (100-190) U/L Creatine Kinase (21-215) U/L Troponin I 0.027 (0.00-0.06) ng/mL NT-Pro-B Natriuret Pep (0-1000) pg/mL Total Protein (6.4-8.2) g/dL Albumin (3.4-5.0) g/dL Meds: Medications Generic Name Dose Route Start Last Admin Trade Name Freq PRN Reason Stop Dose Admin Acetaminophen 500 mg 04/24/20 16:23 Tylenol Extra Strength PO Q6H PRN Pain/Fever Albuterol 1.25 mg 04/24/20 16:23 Proventil Neb Soln INH Q4H PRN Dyspnea Apixaban 2.5 mg 04/24/20 20:00 Eliquis PO BID [facility] Atorvastatin Calcium 20 mg 04/24/20 20:00 Lipitor PO BEDTIME [facility] Clonidine HCl 0.1 mg 04/24/20 16:23 Catapres PO Q2H PRN Hypertension Cyanocobalamin 1,000,000 mcg 04/24/20 16:30 Vitamin B12 IM Q30D [facility] Famotidine 20 mg 04/24/20 20:00 Pepcid PO BEDTIME [facility] Diltiazem HCl 100 mg/ Sodium 100 mls @ 5 mls/hr 04/24/20 13:45 04/24/20 14:04 Chloride IV 5 mg/hr TITRATE [facility] 5 mls/hr Administration Protocol 5 MG/HR Isosorbide Mononitrate 60 mg 04/25/20 08:00 Imdur PO DAILY [facility] Losartan Potassium 100 mg 04/25/20 08:00 Cozaar PO DAILY [facility] Non-Formulary Medication 2,000 unit 04/25/20 08:00 Cholecalciferol (Vitamin D3) [Vitamin D3] PO DAILY [facility] Non-Formulary Medication 180 mg 04/25/20 08:00 Diltiazem Hcl [Diltiazem 24hr Er] PO DAILY [facility] Non-Formulary Medication 1 drop 04/24/20 16:23 Olopatadine [Patanol 0.1% Ophth Soln] EYEBOTH BEDTIME PRN Pain Non-Formulary Medication 20 meq 04/25/20 08:00 Potassium Chloride [Potassium Chloride] PO DAILY [facility] Non-Formulary Medication 1 spray 04/25/20 08:00 Triamcinolone Acetonide RUCHI DAILY [facility] Ondansetron HCl 4 mg 04/24/20 16:23 Zofran IV Q6H PRN Nausea/Vomiting Pantoprazole Sodium 40 mg 04/25/20 08:00 Protonix PO DAILY [facility] Discontinued Medications Generic Name Dose Route Start Last Admin Trade Name Freq PRN Reason Stop Dose Admin Diltiazem HCl 10 mg 04/24/20 11:57 04/24/20 12:23 Diltiazem IVPUSH 04/24/20 11:58 10 mg ONETIME ONE Administration - Radiology Interpretation Free Text/Narrative:: CXR: No infiltrates, no pulmonary edema. - Re-Assessments/Exams Free Text/Narrative Re-Assessment/Exam: 04/24/20 11:45 Patient in rapid a-fib, will give Cardizem. Discussed this with patient and risk vs benefits, She has agreed. 04/24/20 13:00 Patient rate on Cardizem is 10mcg/hr with a rate of 70. Patient will be admitted. Departure - Departure Time of Disposition: 13:00 Disposition: Admitted As Inpatient 68 Condition: Fair Clinical Impression: Uncontrolled atrial fibrillation Hypertensive heart disease Qualifiers: Heart failure presence: unspecified whether heart failure present Qualified Code(s): I11.9 - Hypertensive heart disease without heart failure Sepsis Event Note - Evaluation Sepsis Screening Result: No Definite Risk - Focused Exam Vital Signs: Vital Signs Temp Pulse Resp BP Pulse Ox 04/24/20 12:20 124 H 169/95 H 04/24/20 11:07 97.5 F 124 H 18 181/105 H 99 Date Exam was Performed: 04/24/20 Time Exam was Performed: 16:25 - My Orders Last 24 Hours: My Active Orders 04/24/20 11:18 Chest 2V [CR] Stat 04/24/20 13:45 Diltiazem [Cardizem] 100 mg Sodium Chloride 0.9% [Normal Saline] 100 ml IV TITRATE - Assessment/Plan Last 24 Hours: My Active Orders 04/24/20 11:18 Chest 2V [CR] Stat 04/24/20 13:45 Diltiazem [Cardizem] 100 mg Sodium Chloride 0.9% [Normal Saline] 100 ml IV TITRATE Plan: PLEASE SEE RN NOTE FOR PFSH PLEASE USE ER H&P ADMIT H&P.
[2020-04-24] MEDS ORDERED: Diltiazem 25 MG/5 ML SDV IVPUSH ONE (11:57)
[2020-04-24 12:07] LABS: CHLORIDE,CL 102 mEq/L (98-106); SODIUM,NA 139 mEq/L (136-145)
[2020-04-24] MEDS ORDERED: Diltiazem 100 MG in Sodium Chloride 0.9% 100 ML IV SCH (13:45)
[2020-04-24] MEDS ORDERED: Non-Formulary Medication 1 Each (Olopatadine [Patanol 0.1% Ophth Soln] 1 DROP) EYEBOTH PRN (16:23)
[2020-04-24] MEDS ORDERED: cloNIDine 0.1 MG Tab PO PRN (16:23)
[2020-04-24] MEDS ORDERED: Albuterol 0.042% 1.25 MG/3 ML Neb Soln INH PRN (16:23)
[2020-04-24] MEDS ORDERED: Acetaminophen 500 MG Tab PO PRN (16:23)
[2020-04-24] MEDS ORDERED: Ondansetron 4 MG/2 ML SDV IV PRN (16:23)
[2020-04-24] MEDS ORDERED: Cyanocobalamin (Vitamin B12) 1,000 MCG/ML SDV IM SCH (16:30)
--- NOTE | 2020-04-24 16:30 | PCM.SN.2 ---
- Free Text/Narrative Note: 04/24/2020 1530 Patient reports that she is feeling better, and her head no longer feels foggy. Patient rate on monitor is 60s controlled on Cardizem gtt at 10mcg/hr. EKG ordered and shows SR with rate of 69. Cardizem to be decreased to 5mctg/hr. 04/24/2020 1630 Patient rate maintains rate of 68, BP now 102/60. Patient reports she feels good. Cardizem gtt discontinued. Will continue with admit and hospice team lead.
[2020-04-24] MEDS: atorvaSTATin 20 MG Tab PO SCH (20:50)
[2020-04-24] MEDS: Apixaban 5 MG Tab PO SCH (20:50)
[2020-04-24] MEDS: Famotidine 20 MG Tab PO SCH (20:51)
[2020-04-25] MEDS: Pantoprazole 40 MG Tab.CR PO SCH (06:22)
[2020-04-25] MEDS: Potassium Chloride 10 MEQ Tab.ER PO SCH (07:18)
[2020-04-25] MEDS: Apixaban 5 MG Tab PO SCH ×2 (07:19→19:59)
[2020-04-25] MEDS: Isosorbide Mononitrate 60 MG Tab.ER PO SCH (07:20)
[2020-04-25] MEDS: Cholecalciferol (Vitamin D3) 25 MCG Tab PO SCH (07:21)
[2020-04-25] MEDS: Losartan 100 MG Tab PO SCH (07:21)
[2020-04-25] MEDS: Cyanocobalamin (Vitamin B12) 1,000 MCG/ML SDV IM SCH (07:22)
[2020-04-25] MEDS: Fluticasone Propionate Nasal Spray 16 GM Bottle NAS SCH (07:22)
[2020-04-25] MEDS ORDERED: Diltiazem 180 MG Cap.CD PO SCH (08:00)
--- NOTE | 2020-04-25 11:20 | PCM.PN ---
- General Info Date of Service: 04/25/20 Functional Status: Reports: Pain Controlled, Tolerating Diet, Ambulating, Urinating - Review of Systems General: Reports: No Symptoms HEENT: Reports: Headaches ("foggy") Pulmonary: Reports: No Symptoms Cardiovascular: Denies: Chest Pain, Palpitations, Lightheadedness Gastrointestinal: Reports: No Symptoms Genitourinary: Reports: No Symptoms Musculoskeletal: Reports: No Symptoms Skin: Reports: No Symptoms Neurological: Reports: No Symptoms, Numbness, Seizure, Syncope, Tingling, Tremors, Trouble Speaking, Difficulty Walking, Weakness, Change in Speech, Gait Disturbance. Denies: Confusion, Dizziness Psychiatric: Reports: No Symptoms - Patient Data Vitals - Most Recent: Last Vital Signs Temp 98.9 F 04/25/20 07:48 Pulse 70 04/25/20 07:48 Resp 18 04/25/20 07:48 BP 181/81 H 04/25/20 07:48 Pulse Ox 99 04/25/20 07:48 Weight - Most Recent: 90 lb Lab Results Last 24 Hours: Laboratory Results - last 24 hr 04/24/20 04/24/20 04/24/20 Range/Units 11:17 11:17 11:19 WBC 3.7 L (5.0-10.0) 10^3/uL RBC 4.22 (4.00-5.50) 10^6/uL Hgb 13.0 (12.0-16.0) g/dL Hct 39.6 (37.0-47.0) % MCV 93.8 (82.0-94.0) fL MCH 30.8 (27.0-32.0) pg MCHC 32.8 L (33.0-38.0) g/dL RDW Coeff of Santana 13.0 (11.0-15.0) % Plt Count 179 (150-400) 10^3/uL Neut % (Auto) 58.9 (35-85) % Lymph % (Auto) 24.1 (10-55) % [place] % (Auto) 11.6 (0-16) % Eos % (Auto) 4.3 (0-5) % Baso % (Auto) 1.1 (0-3) % Neut # (Auto) 2.18 (1.80-7.00) 10^3/uL Lymph # (Auto) 0.89 L (1.00-4.80) 10^3/uL [place] # (Auto) 0.43 (0.00-0.80) 10^3/uL Eos # (Auto) 0.16 (0.00-0.45) 10^3/uL Baso # (Auto) 0.04 10^3/uL PT 10.5 (9.7-12.3) SEC INR 1.04 (0.92-1.18) Sodium 139 (136-145) mEq/L Potassium 3.9 (3.5-5.0) mEq/L Chloride 102 (98-106) mEq/L Carbon Dioxide 29 (21-32) mmol/L BUN 14 (7-18) mg/dL Creatinine 0.8 (0.6-1.0) mg/dL Est Cr Clr Drug Dosing 31.93 mL/min Estimated GFR (MDRD) > 60 (>=60) mL/min Glucose 101 H (75-99) mg/dL Calcium 9.0 (8.4-10.1) mg/dL Total Bilirubin 0.7 (0.0-1.0) mg/dL AST 20 (15-37) U/L ALT 18 (12-78) U/L Alkaline Phosphatase 105 (46-116) U/L Lactate Dehydrogenase 173 (100-190) U/L Creatine Kinase 105 (21-215) U/L Troponin I 0.028 (0.00-0.06) ng/mL NT-Pro-B Natriuret Pep 3288 H (0-1000) pg/mL Total Protein 7.1 (6.4-8.2) g/dL Albumin 3.7 (3.4-5.0) g/dL 04/24/20 04/25/20 04/25/20 Range/Units 14:30 07:00 07:00 WBC 4.2 L (5.0-10.0) 10^3/uL RBC 3.87 L (4.00-5.50) 10^6/uL Hgb 12.1 (12.0-16.0) g/dL Hct 36.5 L (37.0-47.0) % MCV 94.3 H (82.0-94.0) fL MCH 31.3 (27.0-32.0) pg MCHC 33.2 (33.0-38.0) g/dL RDW Coeff of Santana 13.0 (11.0-15.0) % Plt Count 176 (150-400) 10^3/uL Neut % (Auto) 65.6 (35-85) % Lymph % (Auto) 19.2 (10-55) % [place] % (Auto) 10.0 (0-16) % Eos % (Auto) 4.5 (0-5) % Baso % (Auto) 0.7 (0-3) % Neut # (Auto) 2.77 (1.80-7.00) 10^3/uL Lymph # (Auto) 0.81 L (1.00-4.80) 10^3/uL [place] # (Auto) 0.42 (0.00-0.80) 10^3/uL Eos # (Auto) 0.19 (0.00-0.45) 10^3/uL Baso # (Auto) 0.03 10^3/uL PT (9.7-12.3) SEC INR (0.92-1.18) Sodium 139 (136-145) mEq/L Potassium 3.7 (3.5-5.0) mEq/L Chloride 102 (98-106) mEq/L Carbon Dioxide 28 (21-32) mmol/L BUN 18 (7-18) mg/dL Creatinine 0.9 (0.6-1.0) mg/dL Est Cr Clr Drug Dosing 28.38 mL/min Estimated GFR (MDRD) 59 L (>=60) mL/min Glucose 101 H (75-99) mg/dL Calcium 8.8 (8.4-10.1) mg/dL Total Bilirubin (0.0-1.0) mg/dL AST (15-37) U/L ALT (12-78) U/L Alkaline Phosphatase (46-116) U/L Lactate Dehydrogenase (100-190) U/L Creatine Kinase (21-215) U/L Troponin I 0.027 (0.00-0.06) ng/mL NT-Pro-B Natriuret Pep (0-1000) pg/mL Total Protein (6.4-8.2) g/dL Albumin (3.4-5.0) g/dL Med Orders - Current: Current Medications Acetaminophen (Tylenol Extra Strength) 500 mg PO Q6H PRN PRN Reason: Pain/Fever Albuterol (Proventil Neb Soln) 1.25 mg INH Q4H PRN PRN Reason: Dyspnea Apixaban (Eliquis) 2.5 mg PO BID [facility] Last Admin: 04/25/20 07:19 Dose: 2.5 mg Atorvastatin Calcium (Lipitor) 20 mg PO BEDTIME [facility] Last Admin: 04/24/20 20:50 Dose: 20 mg Cholecalciferol (Vitamin D3) 50 mcg PO DAILY [facility] Last Admin: 04/25/20 07:21 Dose: 50 mcg Clonidine HCl (Catapres) 0.1 mg PO Q2H PRN PRN Reason: Hypertension Cyanocobalamin (Vitamin B12) 1,000 mcg IM Q30D [facility] Last Admin: 04/25/20 07:22 Dose: Not Given Diltiazem HCl (Cardizem Cd) 180 mg PO DAILY [facility] Famotidine (Pepcid) 20 mg PO BEDTIME [facility] Last Admin: 04/24/20 20:51 Dose: Not Given Fluticasone Propionate (Flonase) 0 gm RUCHI DAILY [facility] Last Admin: 04/25/20 07:22 Dose: Not Given Diltiazem HCl 100 mg/ Sodium (Chloride) 100 mls @ 5 mls/hr IV TITRATE [facility]; Protocol Last Admin: 04/24/20 14:04 Dose: 5 mg/hr, 5 mls/hr Isosorbide Mononitrate (Imdur) 60 mg PO DAILY [facility] Last Admin: 04/25/20 07:20 Dose: 60 mg Losartan Potassium (Cozaar) 100 mg PO DAILY [facility] Last Admin: 04/25/20 07:21 Dose: 100 mg Ondansetron HCl (Zofran) 4 mg IV Q6H PRN PRN Reason: Nausea/Vomiting Pantoprazole Sodium (Protonix) 40 mg PO ACBREAKFAST [facility] Last Admin: 04/25/20 06:22 Dose: 40 mg Potassium Chloride (Klor-Con 10) 20 meq PO DAILY [facility] Last Admin: 04/25/20 07:18 Dose: 20 meq Discontinued Medications Cyanocobalamin (Vitamin B12) 1,000,000 mcg IM Q30D [facility] Last Admin: 04/24/20 20:59 Dose: Not Given Diltiazem HCl (Diltiazem) 10 mg IVPUSH ONETIME ONE Stop: 04/24/20 11:58 Last Admin: 04/24/20 12:23 Dose: 10 mg Diltiazem HCl (Cardizem Cd) 180 mg PO DAILY [facility] Last Admin: 04/25/20 07:20 Dose: 180 mg Diltiazem HCl (Cardizem Cd) 240 mg PO DAILY [facility] Non-Formulary Medication (Olopatadine [Patanol 0.1% Ophth Soln]) 1 drop EYEBOTH BEDTIME PRN PRN Reason: Pain - Exam General: Alert, Oriented, Cooperative, No Acute Distress HEENT: Pupils Equal, Pupils Reactive, Mucous Membr. Moist/[place] Neck: Supple Lungs: Clear to Auscultation, Normal Respiratory Effort Cardiovascular: Regular Rate, Regular Rhythm GI/Abdominal Exam: Soft, Non-Tender Back Exam: Normal Inspection, Full Range of Motion Extremities: Normal Inspection, Normal Range of Motion, Non-Tender, No Pedal Edema, Normal Capillary Refill Peripheral Pulses: 2+: Carotid (L), Carotid (R), Radial (L), Radial (R), Posterior Tibial (L), Posterior Tibial (R) Skin: Warm, Dry, Intact Neurological: No New Focal Deficit, Normal Gait, Normal Speech, Strength Equal Bilateral, Sensation Intact, Cranial Nerves Intact Psy/Mental Status: Alert, Normal Affect, Normal Mood Sepsis Event Note - Evaluation Sepsis Screening Result: No Definite Risk - Focused Exam Vital Signs: Vital Signs Temp Pulse Pulse Resp BP BP Pulse Ox 04/25/20 07:48 98.9 F 70 18 181/81 H 99 04/25/20 07:21 181/81 H 04/25/20 04:00 97.2 F 77 18 168/83 H 98 04/25/20 00:00 98 F 84 18 147/82 H 97 Date Exam was Performed: 04/25/20 Time Exam was Performed: 11:20 - Problem List Review Problem List Initiated/Reviewed/Updated: Yes - My Orders Last 24 Hours: My Active Orders 04/24/20 11:18 Chest 2V [CR] Stat 04/24/20 13:45 Diltiazem [Cardizem] 100 mg Sodium Chloride 0.9% [Normal Saline] 100 ml IV TITRATE 04/24/20 16:13 Resuscitation Status Routine 04/24/20 16:23 Patient Status [ADT] Routine Antiembolic Devices [RC] 1000,2200 Cardiac Monitoring [RC] 0800,2000 Height and Weight [RC] .PRN Oxygen Therapy [RC] .PRN Up With Assistance [RC] .PRN Vital Signs [RC] 0800,1200,1600,2000,0000,0400 Acetaminophen [Tylenol Extra Strength] 500 mg PO Q6H PRN Albuterol [Proventil Neb Soln] 1.25 mg INH Q4H PRN Ondansetron [Zofran] 4 mg IV Q6H PRN cloNIDine [Catapres] 0.1 mg PO Q2H PRN Antiembolic Hose [OM.PC] Per Unit Routine 04/24/20 20:00 Apixaban [Eliquis] 2.5 mg PO BID Famotidine [Pepcid] 20 mg PO BEDTIME atorvaSTATin [Lipitor] 20 mg PO BEDTIME 04/24/20 Dinner Heart Healthy Diet [DIET] 04/25/20 07:00 Pantoprazole [ProTONIX] 40 mg PO ACBREAKFAST 04/25/20 08:00 Cholecalciferol (Vitamin D3) [Vitamin D3] 50 mcg PO DAILY Cyanocobalamin (Vitamin B12) [Vitamin B12] 1,000 mcg IM Q30D Fluticasone Propionate [Flonase] 0 gm RUCHI DAILY Isosorbide Mononitrate [Imdur] 60 mg PO DAILY Losartan [Cozaar] 100 mg PO DAILY Potassium Chloride [Klor-Con 10] 20 meq PO DAILY 04/26/20 05:00 BASIC METABOLIC PANEL,BMP [CHEM] DAILY CBC WITH AUTO DIFF [HEME] DAILY 04/26/20 08:00 Echo Comp wo Cont [US] Routine Diltiazem [Cardizem CD] 180 mg PO DAILY 04/27/20 05:00 BASIC METABOLIC PANEL,BMP [CHEM] DAILY CBC WITH AUTO DIFF [HEME] DAILY - Plan Plan:: 04/25/2020 0855am Patient was admitted yesterday for rapid a-fib. She was placed on Cardizem gtt after bolus. This rate converted to SR and rate. Today the patient reports that she feels a little foggy in her head like her BP has climbed again. This morning patient did have HTN, but was given her morning meds. Will give a couple of hours and recheck her BP. 181/81 this morning, HR 90. Her labs are unremarkable. Will continue admit to observe HR. If patient HR remains controlled and SR, may be able to discharge patient tomorrow. 04/25/2020 1115am Patient blood pressure is much better than this morning. It is 148/82, HR 80. She also reports that her head does not feel foggy. She reports it feels like her BP is come down and better. She denies CP, SOA, or any pain. No clonidine to be given at this time.
[2020-04-25] MEDS: atorvaSTATin 20 MG Tab PO SCH (20:00)
[2020-04-25] MEDS: Famotidine 20 MG Tab PO SCH (20:00)
[2020-04-26] MEDS: Pantoprazole 40 MG Tab.CR PO SCH (06:35)
[2020-04-26 07:24] VITALS: BP 140/68; PULSE 71
[2020-04-26] MEDS: Cholecalciferol (Vitamin D3) 25 MCG Tab PO SCH (07:25)
[2020-04-26] MEDS: Potassium Chloride 10 MEQ Tab.ER PO SCH (07:26)
[2020-04-26] MEDS: Apixaban 5 MG Tab PO SCH (07:27)
[2020-04-26] MEDS: Isosorbide Mononitrate 60 MG Tab.ER PO SCH (07:28)
[2020-04-26] MEDS: Fluticasone Propionate Nasal Spray 16 GM Bottle NAS SCH (07:28)
[2020-04-26] MEDS: Losartan 100 MG Tab PO SCH (07:28)
[2020-04-26 07:39] LABS: CHLORIDE,CL 102 mEq/L (98-106); SODIUM,NA 137 mEq/L (136-145)
[2020-04-26] MEDS ORDERED: Diltiazem 180 MG Cap.CD PO SCH (08:00)
[2020-04-26] MEDS ORDERED: Diltiazem 120 MG Cap.CD PO SCH (08:00)
[2020-04-26] MEDS: Cyanocobalamin (Vitamin B12) 1,000 MCG/ML SDV IM SCH (10:19)
--- NOTE | 2020-04-26 10:55 | DISCH ---
ADMISSION DIAGNOSES: 1. Rapid atrial fibrillation. 2. Hypertension. 3. Chronic gastroesophageal reflux disease with associated hiatal hernia and dysphagia. DISCHARGE DIAGNOSIS: 1. RAPID ATRIAL FIBRILLATION. 2. HYPERTENSION. 3. CHRONIC GASTROESOPHAGEAL REFLUX DISEASE WITH ASSOCIATED HIATAL HERNIA AND DYSPHAGIA. HISTORY: The patient presented to the emergency room with complaints of tachycardia. I believe she had her rates up in the low 200s on admit. I believe she was given Cardizem bolus and drip and came down nicely. For the most part, she has been getting along quite well since admission. Diltiazem drip has been discontinued. She is not having any further tachycardias, remains in chronic AFib, and has been doing fine. Labs have been stable. She has not had any electrolyte abnormalities. At the time of discharge, we are going to increase her Cardizem up from 180 to 240. COMPLICATIONS: During her stay were none. CONSULTATIONS: None. DISPOSITION: Discharge home with followup planned in the next week for recheck. EM/HEMAL /[id number]
== END 2020-04-26 11:19 | disposition home or self-care (01) | DRG 310 ==
LOC: CC.ED 11:06 → UNDOADMIN 15:00 → CC.MS 15:00
PROVIDERS: ADMIT Nurse Practitioner; ATTEND Family Medicine
DX: I48.91 Unspecified atrial fibrillation (principal); I11.9 Hypertensive heart disease without heart failure; I10 Essential (primary) hypertension; K21.9 Gastro-esophageal reflux disease without esophagitis; K44.9 Diaphragmatic hernia without obstruction or gangrene; R13.10 Dysphagia, unspecified; H91.90 Unspecified hearing loss, unspecified ear; E78.00 Pure hypercholesterolemia, unspecified; J45.909 Unspecified asthma, uncomplicated; G89.29 Other chronic pain; M54.9 Dorsalgia, unspecified; M19.90 Unspecified osteoarthritis, unspecified site; M81.0 Age-related osteoporosis without current pathological fracture; E55.9 Vitamin D deficiency, unspecified; E53.8 Deficiency of other specified B group vitamins; Z88.8 Allergy status to other drugs, medicaments and biological substances; Z98.49 Cataract extraction status, unspecified eye; Z96.619 Presence of unspecified artificial shoulder joint; Z91.013 Allergy to seafood; Z88.5 Allergy status to narcotic agent; Z79.01 Long term (current) use of anticoagulants; Z87.440 Personal history of urinary (tract) infections; Z88.1 Allergy status to other antibiotic agents; Z88.2 Allergy status to sulfonamides; Z79.899 Other long term (current) drug therapy
CPT/HCPCS: 36415; 71046; 80048; 80053; 82550; 83615; 83880; 84484; 85025; 85610; 93005; 93306; 96365; 96366; 96376; 99285-25; A9270-GY; J3420; J3490; J7050

== ENCOUNTER 2020-04-29 19:30 | Emergency (ER) | payer MEDICARE, BC ==
[2020-04-29 20:05] LABS: CHLORIDE,CL 99 mEq/L (98-106); SODIUM,NA 135 mEq/L (136-145)
--- NOTE | 2020-04-29 20:20 | EDM.PDOC ---
ED HPI GENERAL MEDICAL PROBLEM - General Chief Complaint: General Stated Complaint: TACHYCARDIA Time Seen by Provider: 04/29/20 20:05 Source of Information: Reports: Patient History Limitations: Reports: No Limitations - History of Present Illness INITIAL COMMENTS - FREE TEXT/NARRATIVE: Siena is an 89 yo female who presents to the ED via private vehicle with c/o elevated pulse. She was recently hospitalized 04/24/2020- 04/29/2020 with uncontrolled atrial fibrillation. Reports Cardizem was increased at that time from 180 to 240 mg. She reports she was doing ok until today when her pulse was in the 120s at home. She reports she called in to the clinic and was advised by her PCP Dr. Lay to take an additional 120 mg dose of Cardizem. Reports he told her pulse should improve in the next 2 hours, but it was still elevated, prompting her ED visit. She reports she feels palpitations/racing heart, but otherwise has no symptoms. She denies any chest pain, shortness of breath, dizziness, N/V/D. She reports her head feels "full" and her eyes "burn" but otherwise no associated symptoms. Does have long history of atrial fibrillation and is anticoagulated with Eliquis. Onset: Today, Gradual Duration: Constant Associated Symptoms: Reports: No Other Symptoms. Denies: Confusion, Chest Pain , Cough, cough w sputum, Diaphoresis, Fever/Chills, Headaches, Loss of Appetite , Malaise, Nausea/Vomiting, Rash, Seizure, Shortness of Breath, Syncope, Weakness - Related Data Allergies Allergy/AdvReac Type Severity Reaction Status Date / Time rofecoxib [From Vioxx] Allergy Airway Verified 04/29/20 20:12 Tightness shellfish derived Allergy Cannot Verified 04/29/20 20:12 Remember amoxicillin AdvReac Diarrhea Verified 04/29/20 20:12 azithromycin AdvReac Dizziness Verified 04/29/20 20:12 propoxyphene napsylate AdvReac Stomach Verified 04/29/20 20:12 [From Darvocet-N 100] Upset quinapril HCl [From Accupril] AdvReac Cough Verified 04/29/20 20:12 sulfamethoxazole AdvReac Dizziness Verified 04/29/20 20:12 [From Bactrim] trimethoprim [From Bactrim] AdvReac Dizziness Verified 04/29/20 20:12 Home Meds: Home Meds Losartan [Cozaar] 100 mg PO DAILY 11/11/13 [History] Olopatadine [Patanol 0.1% Ophth Soln] 1 drop EYEBOTH BEDTIME PRN 11/11/13 [ History] Potassium Chloride 20 meq PO DAILY 02/26/14 [History] Apixaban [Eliquis] 2.5 mg PO BID 08/23/14 [History] Albuterol Sulfate 3 ml INH Q4H PRN 10/28/17 [History] Albuterol Sulfate [Proair Hfa] 2 puff INH BID PRN 10/28/17 [History] Isosorbide Mononitrate [Imdur] 60 mg PO DAILY 10/28/17 [History] Acetaminophen [Tylenol Extra Strength] 500 mg PO Q6H PRN 12/31/17 [History] Triamcinolone Acetonide [Nasacort AQ [place]] 1 spray RUCHI DAILY 12/31/17 [History] cloNIDine [Catapres] 0.1 mg PO Q2H PRN #30 tablet 01/02/18 [Rx] Cholecalciferol (Vitamin D3) [Vitamin D3] 2,000 unit PO DAILY 08/02/18 [History] Cyanocobalamin (Vitamin B12) [Vitamin B12] 1,000 mg IM Q30D 08/02/18 [History] Pantoprazole Sodium 40 mg PO DAILY 01/28/20 [History] Famotidine [Acid Controller] 20 mg PO BEDTIME 04/24/20 [History] atorvaSTATin [Lipitor] 20 mg PO BEDTIME 04/24/20 [History] dilTIAZem HCL [Diltiazem 24Hr ER] 240 mg PO DAILY #30 cap.sa.24h 04/26/20 [Rx] Metoprolol Tartrate 25 mg PO BID #60 tablet 04/29/20 [Rx] Past Medical History HEENT History: Reports: Cataract, Hard of Hearing Cardiovascular History: Reports: Afib, Arrhythmia, Heart Murmur, High Cholesterol, Hypertension Respiratory History: Reports: Asthma Gastrointestinal History: Reports: None, Hiatal Hernia Genitourinary History: Reports: UTI, Recurrent Musculoskeletal History: Reports: Arthritis, Back Pain, Chronic, Fracture, Osteoarthritis, Osteoporosis Psychiatric History: Reports: None Endocrine/Metabolic History: Reports: Osteoporosis, Vitamin D Deficiency Hematologic History: Reports: Anemia, B12 Deficiency, Other (See Below) Other Hematologic History: plasma transfusion Oncologic (Cancer) History: Reports: None - Infectious Disease History Infectious Disease History: Reports: Chicken Pox, Shingles - Past Surgical History HEENT Surgical History: Reports: Cataract Surgery GI Surgical History: Reports: Colonoscopy, EGD, Hernia Repair/Other, Benedicto Fundoplication Musculoskeletal Surgical History: Reports: Shoulder Replacement Oncologic Surgical History: Reports: Biopsy of Breast Social & Family History - Family History Family Medical History: Noncontributory - Tobacco Use Smoking Status *Q: Never Smoker - Caffeine Use Caffeine Use: Reports: Coffee - Recreational Drug Use Recreational Drug Use: No ED ROS GENERAL - Review of Systems Review Of Systems: Comprehensive ROS is negative, except as noted in HPI. ED EXAM, GENERAL - Physical Exam Exam: See Below Exam Limited By: No Limitations General Appearance: Alert, WD/WN, No Apparent Distress Eye Exam: Bilateral Eye: EOMI, Normal Fundi, Normal Inspection, PERRL Head: Atraumatic, Normocephalic Neck: Normal Inspection, Supple, Non-Tender, Full Range of Motion Respiratory/Chest: No Respiratory Distress, Lungs Clear, Normal Breath Sounds, No Accessory Muscle Use, Chest Non-Tender Cardiovascular: Normal Peripheral Pulses, No Edema, No JVD, Tachycardia, Irregularly Irregular GI/Abdominal: Normal Bowel Sounds, Soft, Non-Tender, No Organomegaly, No Distention, No Abnormal Bruit, No Mass Extremities: No Pedal Edema, Normal Capillary Refill Neurological: Alert, Oriented, CN II-XII Intact, Normal Cognition, Normal Gait, Normal Reflexes, No Motor/Sensory Deficits Psychiatric: Normal Affect, Normal Mood Skin Exam: Warm, Dry, Intact, Normal Color, No Rash EKG INTERPRETATION EKG Date: 04/29/20 Time: 19:56 Rhythm: A-Fib Rate (Beats/Min): 95 Comparison: No Change Course - Vital Signs Last Recorded V/S: Last Vital Signs Temp 99.2 F 04/29/20 20:10 Pulse 125 H 04/29/20 20:10 Resp 18 04/29/20 20:10 BP 163/93 H 04/29/20 20:10 Pulse Ox 95 04/29/20 20:10 - Orders/Labs/Meds Labs: Laboratory Tests 04/29/20 04/29/20 04/29/20 Range/Units 19:50 19:50 19:50 WBC 5.8 (5.0-10.0) 10^3/uL RBC 4.08 (4.00-5.50) 10^6/uL Hgb 12.7 (12.0-16.0) g/dL Hct 38.0 (37.0-47.0) % MCV 93.1 (82.0-94.0) fL MCH 31.1 (27.0-32.0) pg MCHC 33.4 (33.0-38.0) g/dL RDW Coeff of Santana 12.8 (11.0-15.0) % Plt Count 211 (150-400) 10^3/uL Neut % (Auto) 55.9 (35-85) % Lymph % (Auto) 29.8 (10-55) % Nuckolls % (Auto) 10.1 (0-16) % Eos % (Auto) 3.3 (0-5) % Baso % (Auto) 0.9 (0-3) % Neut # (Auto) 3.23 (1.80-7.00) 10^3/uL Lymph # (Auto) 1.72 (1.00-4.80) 10^3/uL Nuckolls # (Auto) 0.58 (0.00-0.80) 10^3/uL Eos # (Auto) 0.19 (0.00-0.45) 10^3/uL Baso # (Auto) 0.05 10^3/uL Sodium 135 L (136-145) mEq/L Potassium 4.2 (3.5-5.0) mEq/L Chloride 99 (98-106) mEq/L Carbon Dioxide 28 (21-32) mmol/L BUN 19 H (7-18) mg/dL Creatinine 1.0 (0.6-1.0) mg/dL Est Cr Clr Drug Dosing TNP Estimated GFR (MDRD) 52 L (>=60) mL/min Glucose 109 H (75-99) mg/dL Calcium 9.1 (8.4-10.1) mg/dL Magnesium 2.1 (1.8-2.4) mg/dL Troponin I 0.021 (0.00-0.06) ng/mL Meds: Medications Discontinued Medications Generic Name Dose Route Start Last Admin Trade Name Freq PRN Reason Stop Dose Admin Metoprolol Tartrate 25 mg 04/29/20 20:34 Lopressor PO 04/29/20 20:35 STAT STA Metoprolol Tartrate 25 mg 04/29/20 20:34 Lopressor PO 04/29/20 20:35 ONETIME ONE - Re-Assessments/Exams Free Text/Narrative Re-Assessment/Exam: 04/29/20 20:40 Consulted with patient's PCP Dr. Lay who recommends starting metoprolol tartrate 25 mg BID. Discussed this with patient. Discussed overnight observation stay. Patient declines, which I feel is reasonable. Pulse currently 100 bpm. Longstanding history of atrial fibrillation, currently anticoagulated with Eliquis. Departure - Departure Time of Disposition: 20:37 Disposition: Home, Self-Care 01 Condition: Fair Clinical Impression: Uncontrolled atrial fibrillation Hypertensive heart disease Qualifiers: Heart failure presence: unspecified whether heart failure present Qualified Code(s): I11.9 - Hypertensive heart disease without heart failure - Discharge Information *PRESCRIPTION DRUG MONITORING PROGRAM REVIEWED*: Not Applicable *COPY OF PRESCRIPTION DRUG MONITORING REPORT IN PATIENT CORKY: Not Applicable Prescriptions: Metoprolol Tartrate 25 mg PO BID #60 tablet Instructions: Atrial Fibrillation, [id number] Referrals: Rock Lay MD [Primary Care Provider] - Forms: ED Department Discharge Additional Instructions: - Start metoprolol tartrate (Lopressor) 25 mg twice daily. You were given 1 in the ED tonight and 1 for take home to take in the morning. Remaining medications can be picked up at [facility] - Rest and take it easy until feeling better - Follow up with PCP for recheck Sunday05/03/2020 as previously scheduled - Return to ED for any emergent needs Sepsis Event Note - Evaluation Sepsis Screening Result: No Definite Risk - Focused Exam Vital Signs: Vital Signs Temp Pulse Resp BP Pulse Ox 04/29/20 20:10 99.2 F 125 H 18 163/93 H 95 Date Exam was Performed: 04/29/20 Time Exam was Performed: 20:36 - Problem List & Annotations (1) Atrial fibrillation with rapid ventricular response SNOMED Code(s): 586794618718530 Code(s): I48.91 - UNSPECIFIED ATRIAL FIBRILLATION Status: Acute Current Visit: Yes (2) Hypertensive heart disease SNOMED Code(s): 45001441 Code(s): I11.9 - HYPERTENSIVE HEART DISEASE WITHOUT HEART FAILURE Status: Acute Current Visit: Yes Qualifiers: Heart failure presence: unspecified whether heart failure present Qualified Code(s): I11.9 - Hypertensive heart disease without heart failure - Assessment/Plan Assessment:: Atrial Fibrillation with Rapid Ventricular Response Hypertensive Heart Disease Plan: 89 yo female who presented to the ED with c/o tachycardia. She denies any chest pain, shortness of breath, dizziness, syncopal episodes. No other significant symptoms. She did take an additional dose of Cardizem this afternoon as advised by her PCP but pulse remained in 120s. EKG shows atrial fibrillation with ventricular rate of 95. Pulse did fluctuate between 90s-120s during ED visit. Consulted with patient's PCP Dr. Lay, who recommends adding Metoprolol Tartrate 25 mg BID. Patient given dose while in ED. Discussed observation stay, to which patient declines. I do feel this is reasonable given normal lab workup. Pulse did not get above 120s while in ED and patient is asymptomatic. Patient will be discahrged home. Is advised to follow up with her PCP 05/03 as previously scheduled. She is advised to return to ED for any emergent needs. She verbalized understanding and was discharged from facility in satisfactory condition.
[2020-04-29] MEDS: Metoprolol Tartrate 25 MG Tab PO STA (20:40)
[2020-04-29 20:42] VITALS: BP 140/96; PULSE 126
[2020-04-29] MEDS: Metoprolol Tartrate 25 MG Tab PO ONE (20:45)
== END 2020-04-29 20:53 | disposition home or self-care (01) ==
LOC: CC.ED 19:30
DX: I11.9 Hypertensive heart disease without heart failure (principal); I48.91 Unspecified atrial fibrillation; E78.00 Pure hypercholesterolemia, unspecified; I10 Essential (primary) hypertension; J45.909 Unspecified asthma, uncomplicated; Z79.01 Long term (current) use of anticoagulants; Z88.8 Allergy status to other drugs, medicaments and biological substances; Z91.013 Allergy to seafood; Z88.2 Allergy status to sulfonamides; Z88.1 Allergy status to other antibiotic agents; Z79.899 Other long term (current) drug therapy
CPT/HCPCS: 36415; 80048; 83735; 84484; 85025; 93005; 99284; 99285-25; A9270-GY

== ENCOUNTER 2020-08-12 16:28 | Emergency (ER) | payer MEDICARE, BC ==
--- NOTE | 2020-08-12 17:27 | EDM.PDOC ---
ED HPI GENERAL MEDICAL PROBLEM - General Chief Complaint: General Stated Complaint: BLOOD PRESSURE Time Seen by Provider: 08/12/20 17:05 Source of Information: Reports: Patient History Limitations: Reports: No Limitations - History of Present Illness INITIAL COMMENTS - FREE TEXT/NARRATIVE: Patient presents to ER with complaints of palpitations and hypertension. States has been having issues all week, off an on. Today, headache, dizziness did not improve with rest. Did check her blood pressure at home, was high at 166/106. No chest pain. Does get short of breath at times but relates this to her asthma as is unchanged right now. Does take multiple meds for hypertension, has clonidine at home to use when needed. Did not take with high blood pressure, "scared to take it". No nausea. Mild sinus congestion related to her allergies, unchanged. No abdominal pain. Has history of atrial fib "for years". Checked pulse at home, has been consistently running in the 60s. Duration: Day(s):, Waxing/Waning Location: Reports: Head, Chest Improves with: Reports: Rest Associated Symptoms: Reports: Shortness of Breath. Denies: Confusion, Chest Pain, Cough, Fever/Chills, Loss of Appetite, Nausea/Vomiting, Syncope, Weakness - Related Data Allergies Allergy/AdvReac Type Severity Reaction Status Date / Time rofecoxib [From Vioxx] Allergy Airway Verified 08/12/20 17:19 Tightness shellfish derived Allergy Cannot Verified 08/12/20 17:19 Remember amoxicillin AdvReac Diarrhea Verified 08/12/20 17:19 azithromycin AdvReac Dizziness Verified 08/12/20 17:19 propoxyphene napsylate AdvReac Stomach Verified 08/12/20 17:19 [From Darvocet-N 100] Upset quinapril HCl [From Accupril] AdvReac Cough Verified 08/12/20 17:19 sulfamethoxazole AdvReac Dizziness Verified 08/12/20 17:19 [From Bactrim] trimethoprim [From Bactrim] AdvReac Dizziness Verified 08/12/20 17:19 Home Meds: Home Meds Losartan [Cozaar] 100 mg PO DAILY 11/11/13 [History] Olopatadine [Patanol 0.1% Ophth Soln] 1 drop EYEBOTH BEDTIME PRN 11/11/13 [History] Potassium Chloride 20 meq PO DAILY 02/26/14 [History] Apixaban [Eliquis] 2.5 mg PO BID 08/23/14 [History] Albuterol Sulfate 3 ml INH Q4H PRN 10/28/17 [History] Albuterol Sulfate [Proair Hfa] 2 puff INH BID PRN 10/28/17 [History] Isosorbide Mononitrate [Imdur] 60 mg PO DAILY 10/28/17 [History] Acetaminophen [Tylenol Extra Strength] 500 mg PO Q6H PRN 12/31/17 [History] Triamcinolone Acetonide [Nasacort AQ [place]] 1 spray RUCHI DAILY 12/31/17 [History] cloNIDine [Catapres] 0.1 mg PO Q2H PRN #30 tablet 01/02/18 [Rx] Cholecalciferol (Vitamin D3) [Vitamin D3] 2,000 unit PO DAILY 08/02/18 [History] Cyanocobalamin (Vitamin B12) [Vitamin B12] 1,000 mg IM Q30D 08/02/18 [History] Pantoprazole Sodium 40 mg PO DAILY 01/28/20 [History] Famotidine [Acid Controller] 20 mg PO BEDTIME 04/24/20 [History] atorvaSTATin [Lipitor] 20 mg PO BEDTIME 04/24/20 [History] dilTIAZem HCL [Diltiazem 24Hr ER] 240 mg PO DAILY #30 cap.sa.24h 04/26/20 [Rx] Metoprolol Tartrate 25 mg PO BID #60 tablet 04/29/20 [Rx] Past Medical History HEENT History: Reports: Cataract, Hard of Hearing Cardiovascular History: Reports: Afib, Arrhythmia, Heart Murmur, High Cholesterol, Hypertension Respiratory History: Reports: Asthma Gastrointestinal History: Reports: None, Hiatal Hernia Genitourinary History: Reports: UTI, Recurrent Musculoskeletal History: Reports: Arthritis, Back Pain, Chronic, Fracture, Osteoarthritis, Osteoporosis Psychiatric History: Reports: None Endocrine/Metabolic History: Reports: Osteoporosis, Vitamin D Deficiency Hematologic History: Reports: Anemia, B12 Deficiency, Other (See Below) Other Hematologic History: plasma transfusion Oncologic (Cancer) History: Reports: None - Infectious Disease History Infectious Disease History: Reports: Chicken Pox, Shingles - Past Surgical History HEENT Surgical History: Reports: Cataract Surgery GI Surgical History: Reports: Colonoscopy, EGD, Hernia Repair/Other, Benedicto Fundoplication Musculoskeletal Surgical History: Reports: Shoulder Replacement Oncologic Surgical History: Reports: Biopsy of Breast Social & Family History - Family History Family Medical History: Noncontributory - Tobacco Use Smoking Status *Q: Never Smoker Second Hand Smoke Exposure: No - Caffeine Use Caffeine Use: Reports: None - Recreational Drug Use Recreational Drug Use: No ED ROS GENERAL - Review of Systems Review Of Systems: See Below Constitutional: Denies: Fever, Chills, Malaise, Weakness, Fatigue HEENT: Denies: Ear Pain, Sinus Problem, Throat Pain Respiratory: Reports: Shortness of Breath Cardiovascular: Denies: Chest Pain, Edema, Lightheadedness Endocrine: Denies: Fatigue GI/Abdominal: Denies: Abdominal Pain, Nausea, Vomiting : Reports: No Symptoms Musculoskeletal: Reports: No Symptoms Skin: Reports: No Symptoms Neurological: Reports: Headache ED EXAM, GENERAL - Physical Exam Exam: See Below Exam Limited By: No Limitations General Appearance: Alert, WD/WN, No Apparent Distress Ears: Normal External Exam, Normal TMs Nose: Normal Inspection, Normal Mucosa, No Blood Throat/Mouth: Normal Inspection, Normal Oropharynx Head: Normocephalic Neck: Normal Inspection, Supple, Non-Tender Respiratory/Chest: No Respiratory Distress, Lungs Clear, Normal Breath Sounds Cardiovascular: Regular Rate, Rhythm GI/Abdominal: Normal Bowel Sounds, Soft, Non-Tender Extremities: Normal Inspection, No Pedal Edema Neurological: Alert, Oriented Skin Exam: Warm, Dry Course - Vital Signs Last Recorded V/S: Last Vital Signs Temp 99.9 F 08/12/20 16:37 Pulse 72 08/12/20 16:37 Resp 14 08/12/20 16:37 BP 168/85 H 08/12/20 16:37 Pulse Ox 98 08/12/20 16:37 - Orders/Labs/Meds Labs: Laboratory Tests 08/12/20 08/12/20 Range/Units 16:36 16:36 WBC 4.7 L (5.0-10.0) 10^3/uL RBC 3.93 L (4.00-5.50) 10^6/uL Hgb 12.1 (12.0-16.0) g/dL Hct 36.9 L (37.0-47.0) % MCV 93.9 (82.0-94.0) fL MCH 30.8 (27.0-32.0) pg MCHC 32.8 L (33.0-38.0) g/dL RDW Coeff of Santana 13.2 (11.0-15.0) % Plt Count 167 (150-400) 10^3/uL Neut % (Auto) 60.9 (35-85) % Lymph % (Auto) 26.6 (10-55) % Mckean % (Auto) 8.9 (0-16) % Eos % (Auto) 3.0 (0-5) % Baso % (Auto) 0.6 (0-3) % Neut # (Auto) 2.88 (1.80-7.00) 10^3/uL Lymph # (Auto) 1.26 (1.00-4.80) 10^3/uL Mckean # (Auto) 0.42 (0.00-0.80) 10^3/uL Eos # (Auto) 0.14 (0.00-0.45) 10^3/uL Baso # (Auto) 0.03 10^3/uL Sodium 138 (136-145) mEq/L Potassium 4.0 (3.5-5.0) mEq/L Chloride 103 (98-106) mEq/L Carbon Dioxide 25 (21-32) mmol/L BUN 16 (7-18) mg/dL Creatinine 0.9 (0.6-1.0) mg/dL Est Cr Clr Drug Dosing 27.85 mL/min Estimated GFR (MDRD) 59 L (>=60) mL/min Glucose 130 H (75-99) mg/dL Calcium 8.5 (8.4-10.1) mg/dL Magnesium 1.9 (1.8-2.4) mg/dL Total Bilirubin 1.0 (0.0-1.0) mg/dL AST 16 (15-37) U/L ALT 15 (12-78) U/L Alkaline Phosphatase 103 (46-116) U/L Troponin I 0.045 (0.00-0.06) ng/mL Total Protein 7.1 (6.4-8.2) g/dL Albumin 3.6 (3.4-5.0) g/dL - Re-Assessments/Exams Free Text/Narrative Re-Assessment/Exam: 08/12/20 17:27 Labs are stable, cardiac enzymes normal. EKG normal. Is feeling good at present, no further palpitations. Has slight headache Departure - Departure Time of Disposition: 17:28 Disposition: Home, Self-Care 01 Condition: Good Clinical Impression: Palpitations, Hypertension - Discharge Information *PRESCRIPTION DRUG MONITORING PROGRAM REVIEWED*: No *COPY OF PRESCRIPTION DRUG MONITORING REPORT IN PATIENT CORKY: No Instructions: Preventing Hypertension, Palpitations, [id number] Referrals: Rock Lay MD [Primary Care Provider] - Additional Instructions: 1. Rest 2. Monitor blood pressure, take Clonidine if blood pressure consistently high for greater than 1-2 hours 3. Report increasing pain, shortness of breath or headaches. Sepsis Event Note (ED) - Evaluation Sepsis Screening Result: No Definite Risk - Focused Exam Vital Signs: Vital Signs Temp Pulse Resp BP Pulse Ox 08/12/20 16:37 99.9 F 72 14 168/85 H 98
[2020-08-12 17:51] VITALS: BP 155/74; PULSE 68
== END 2020-08-12 17:51 | disposition home or self-care (01) ==
LOC: CC.ED 16:28
DX: I10 Essential (primary) hypertension (principal); R00.2 Palpitations; I48.91 Unspecified atrial fibrillation; J45.909 Unspecified asthma, uncomplicated; Z88.1 Allergy status to other antibiotic agents; Z91.013 Allergy to seafood; Z88.2 Allergy status to sulfonamides; Z88.6 Allergy status to analgesic agent; Z79.899 Other long term (current) drug therapy
CPT/HCPCS: 36415; 80053; 83735; 84484; 85025; 93005; 99285-25

== ENCOUNTER → 2021-05-26 | Day surgery (SDC) | payer MEDICARE, BC ==
[~2021-05-26] MED LIST changes: -Benzocaine 20% Oral Spray 59.2 ML Canister MUCMEM ONE; -Lactated Ringers 1,000 ML IV SCH; +Lidocaine 2% 5 ML SDV ONE; -Midazolam 1 MG/ML 2 ML SDV IV ONE; -Midazolam 1 MG/ML 2 ML SDV ONE; +Propofol 200 MG/20 ML SDV ONE; +fentaNYL 100 MCG/2 ML SDV ONE
[2021-05-26] MEDS: Lactated Ringers 1,000 ML IV SCH (07:25)
[2021-05-26 09:28] VITALS: BP 147/100; PULSE 67
--- NOTE | 2021-05-26 15:03 | OR ---
DATE OF OPERATION: 05/26/2021 PREOPERATIVE DIAGNOSIS: DYSPHAGIA WITH NAUSEA AND VOMITING. POSTOPERATIVE DIAGNOSIS: DYSPHAGIA WITH NAUSEA AND VOMITING. SURGEON: Luiz Diallo MD PROCEDURE: EGD. ANESTHESIA: Conscious sedation with MAC. SPECIMEN: None. FINDINGS: Hourglass shaped stomach with at least half the stomach in the mediastinal hernia sac. No evidence of strictures or tumors. RECOMMENDATIONS: This patient is 89 years old and has already had a Benedicto fundoplication. She is on Eliquis and has somewhat of a cardiac history. I am not sure surgery would be indicated at this point, as if she watches what she eats and how she does, this seems to be okay. PROCEDURE: AFTER ADEQUATE PREPARATION, A GASTROSCOPE WAS INSERTED INTO THE ESOPHAGUS. THIS WAS PASSED DOWN TO THE DISTAL ESOPHAGUS. SHE DOES NOT SHOW ANY EVIDENCE OF STRICTURE OR MASSES OR ULCERS. NO EVIDENCE OF DISTAL ESOPHAGITIS. THE SCOPE WAS ADVANCED INTO THE STOMACH. EXAMINATION OF THE UPPER STOMACH SHOWS A LARGE AMOUNT OF STOMACH. IN THE MEDIASTINAL HERNIA SAC, THERE WAS SOMEWHAT OF A CORKSCREW APPEARANCE OF THE OPENING DOWN INTO THE LOWER PART OF THE ANTRAL STOMACH. I WAS ABLE TO NEGOTIATE THIS. THERE ARE NO OTHER ABNORMALITIES. NO ULCERS OR TUMOR GROWTHS. AIR WAS SUCTIONED FROM THE STOMACH AND THE SCOPE REMOVED. BPB/MODL /[id number]
== END ==
LOC: CC.SDS 06:52
PROVIDERS: ATTEND Surgery
DX: R13.10 Dysphagia, unspecified (principal); K44.9 Diaphragmatic hernia without obstruction or gangrene; R11.2 Nausea with vomiting, unspecified; J45.909 Unspecified asthma, uncomplicated; I48.91 Unspecified atrial fibrillation; E78.5 Hyperlipidemia, unspecified; Z88.8 Allergy status to other drugs, medicaments and biological substances; Z88.1 Allergy status to other antibiotic agents; Z91.013 Allergy to seafood; Z98.84 Bariatric surgery status; Z79.899 Other long term (current) drug therapy; Z79.01 Long term (current) use of anticoagulants; Z98.890 Other specified postprocedural states
CPT/HCPCS: J2704; J3010; J7120

== ENCOUNTER 2021-05-31 21:15 | Emergency (ER) | payer MEDICARE, BC ==
--- NOTE | 2021-05-31 22:19 | EDM.PDOC ---
ED HPI GENERAL MEDICAL PROBLEM - General Chief Complaint: General Stated Complaint: Fell Time Seen by Provider: 05/31/21 21:34 Source of Information: Reports: Patient History Limitations: Reports: No Limitations - History of Present Illness INITIAL COMMENTS - FREE TEXT/NARRATIVE: Siena is am 89 year old female who presents to ER after a fall at home. Was putting laundry on her nephew's bed when she tripped over the guns he had lying on the floor. Fell, landed on her arm on the guns, may have hit her head slightly to the right temporal area. No loss of consciousness. Denies any double or blurred vision. No nausea. Denies pain in her shoulders, hips or pelvis. No shortness of breath. Does have pain to her right forearm, obvious bruising. Reports is on Eliquis. Able to ambulate in to ER unassisted. Trauma code called. GCS 15. Onset: Today, Sudden Duration: Minutes:, Constant Location: Reports: Upper Extremity, Right Quality: Reports: Ache Severity: Moderate Improves with: Reports: Rest Worsens with: Reports: Movement Context: Reports: Trauma Associated Symptoms: Denies: Confusion, Chest Pain, Malaise, Nausea/Vomiting, Shortness of Breath, Syncope, Weakness Right Lower Arm Pain Score (Numeric/FACES): 9 - Related Data Allergies Allergy/AdvReac Type Severity Reaction Status Date / Time rofecoxib [From Vioxx] Allergy Airway Verified 05/31/21 22:08 Tightness shellfish derived Allergy Cannot Verified 05/31/21 22:08 Remember amoxicillin AdvReac Diarrhea Verified 05/31/21 22:08 azithromycin AdvReac Dizziness Verified 05/31/21 22:08 propoxyphene napsylate AdvReac Stomach Verified 05/31/21 22:08 [From Darvocet-N 100] Upset quinapril HCl [From Accupril] AdvReac Cough Verified 05/31/21 22:08 sulfamethoxazole AdvReac Dizziness Verified 05/31/21 22:08 [From Bactrim] trimethoprim [From Bactrim] AdvReac Dizziness Verified 05/31/21 22:08 Home Meds: Home Meds Losartan [Cozaar] 100 mg PO DAILY 11/11/13 [History] Olopatadine [Patanol 0.1% Ophth Soln] 1 drop EYEBOTH BEDTIME PRN 11/11/13 [History] Potassium Chloride 20 meq PO DAILY 02/26/14 [History] Apixaban [Eliquis] 2.5 mg PO BID 08/23/14 [History] Albuterol Sulfate 3 ml INH Q4H PRN 10/28/17 [History] Albuterol Sulfate [Proair Hfa] 2 puff INH BID PRN 10/28/17 [History] Isosorbide Mononitrate [Imdur] 60 mg PO DAILY 10/28/17 [History] Acetaminophen [Tylenol Extra Strength] 500 mg PO Q6H PRN 12/31/17 [History] cloNIDine [Catapres] 0.1 mg PO Q2H PRN #30 tablet 01/02/18 [Rx] Cholecalciferol (Vitamin D3) [Vitamin D3] 2,000 unit PO DAILY 08/02/18 [History] Pantoprazole Sodium 40 mg PO DAILY 01/28/20 [History] Famotidine [Acid Controller] 20 mg PO BEDTIME 04/24/20 [History] atorvaSTATin [Lipitor] 10 mg PO BEDTIME 04/24/20 [History] Metoprolol Tartrate 12.5 mg PO BID 05/23/21 [History] Ondansetron [Zofran ODT] 4 mg PO Q6H PRN 05/23/21 [History] Triamcinolone Acetonide [Nasacort AQ [place]] 1 spray NASBOTH DAILY PRN 05/23/21 [History] dilTIAZem HCL [Cartia Xt] 300 mg PO DAILY 05/23/21 [History] Past Medical History HEENT History: Reports: Cataract, Hard of Hearing Cardiovascular History: Reports: Afib, Arrhythmia, Heart Murmur, High Cholesterol, Hypertension Respiratory History: Reports: Asthma Gastrointestinal History: Reports: None, Hiatal Hernia Genitourinary History: Reports: UTI, Recurrent Musculoskeletal History: Reports: Arthritis, Back Pain, Chronic, Fracture, Osteoarthritis, Osteoporosis Psychiatric History: Reports: None Endocrine/Metabolic History: Reports: Osteoporosis, Vitamin D Deficiency Hematologic History: Reports: Anemia, B12 Deficiency, Other (See Below) Other Hematologic History: plasma transfusion Oncologic (Cancer) History: Reports: None - Infectious Disease History Infectious Disease History: Reports: Chicken Pox, Shingles - Past Surgical History HEENT Surgical History: Reports: Cataract Surgery GI Surgical History: Reports: Colonoscopy, EGD, Hernia Repair/Other, Benedicto Fundoplication Musculoskeletal Surgical History: Reports: Shoulder Replacement Oncologic Surgical History: Reports: Biopsy of Breast Social & Family History - Family History Family Medical History: No Pertinent Family History - Tobacco Use Tobacco Use Status *Q: Never Tobacco User Second Hand Smoke Exposure: No - Caffeine Use Caffeine Use: Reports: None, Coffee Other Caffeine Use: 1 cup a day - Recreational Drug Use Recreational Drug Use: No ED ROS GENERAL - Review of Systems Review Of Systems: See Below Constitutional: Denies: Fever, Chills, Malaise, Weakness, Fatigue HEENT: Denies: Ear Pain, Nosebleed, Rhinitis, Throat Pain, Vertigo Respiratory: Denies: Shortness of Breath Cardiovascular: Denies: Chest Pain, Edema, Lightheadedness Endocrine: Denies: Fatigue GI/Abdominal: Denies: Abdominal Pain, Nausea, Vomiting : Reports: No Symptoms Musculoskeletal: Reports: Arm Pain Skin: Reports: Bruising Neurological: Denies: Confusion, Dizziness, Headache, Syncope, Weakness Psychiatric: Reports: No Symptoms ED EXAM, GENERAL - Physical Exam Exam: See Below Free Text/Narrative:: Siena is an 89 year old female who presents to ER after a fall at home. Tripped and landed on her right arm, hit head "slightly" on the floor. No loss of consciousness. Primary survey: GCS 15 Alert, oriented, answers all questions appropriately. Patent airway Lung sounds clear Heart rate irregular No pelvic pain or instability with palpation Back exposed, clear Exam Limited By: No Limitations General Appearance: Alert, WD/WN, No Apparent Distress Eye Exam: Bilateral Eye: EOMI, PERRL Ears: Normal External Exam, Normal TMs Nose: Normal Inspection, Normal Mucosa, No Blood Throat/Mouth: Normal Inspection, Normal Oropharynx Head: Normocephalic Neck: Normal Inspection, Supple, Non-Tender Respiratory/Chest: No Respiratory Distress, Lungs Clear, Normal Breath Sounds Cardiovascular: Irregularly Irregular GI/Abdominal: Normal Bowel Sounds, Soft, Non-Tender Back Exam: Normal Inspection, Full Range of Motion Extremities: No Pedal Edema, Arm Pain, Limited Range of Motion (pain with flexion and extension of her right wrist. Bruising noted to forearm and wrist. Tender to mid forearm with palpation. ) Neurological: Alert, Oriented, CN II-XII Intact, Normal Cognition, Normal Gait, No Motor/Sensory Deficits Skin Exam: Warm, Dry, Ecchymosis Course - Vital Signs Last Recorded V/S: Last Vital Signs Temp 98 F 05/31/21 21:26 Pulse 65 05/31/21 21:26 Resp 20 05/31/21 21:26 BP 136/91 H 05/31/21 21:26 Pulse Ox 90 L 05/31/21 21:26 - Orders/Labs/Meds Orders: Active Orders 24 hr Category Date Time Status Forearm 2V Rt [CR] Stat Exams 05/31/21 21:36 Ordered Head wo Cont [CT] Stat Exams 05/31/21 21:30 Ordered Wrist Comp Min 3V Rt [CR] Stat Exams 05/31/21 21:36 Ordered - Re-Assessments/Exams Free Text/Narrative Re-Assessment/Exam: 05/31/21 22:20 Exam unchanged. GCS 15. Xrays of right arm show nondisplaced fracture mid shaft of ulna. Pre-cuate splint placed. Ice pack placed. No labs ordered due to mechanism of injury with fall over object, no loss of consciousness or complaints. No pelvis or chest xray done due to no injury to these areas as fall from ground level. No shortness of breath or gait abnormalities or pain. 05/31/21 22:24 CT scan of head is negative for acute concerns. Offered pain medicine but patient declines. Departure - Departure Time of Disposition: 22:24 Disposition: Home, Self-Care 01 Condition: Good Clinical Impression: Ulna fracture - Discharge Information *PRESCRIPTION DRUG MONITORING PROGRAM REVIEWED*: No Instructions: Ulnar Fracture Additional Instructions: 1. Rest and elevate arm 2. Ice pack to mid forearm frequently tonight and tomorrow 3. Splint on at all times. 4. See Dr. Lay next week for repeat xrays and possible cast 5. Tylenol for discomfort 6. Call or return with any change in status or increased concerns. Sepsis Event Note (ED) - Evaluation Sepsis Screening Result: No Definite Risk - Focused Exam Vital Signs: Vital Signs Temp Pulse Resp BP Pulse Ox 05/31/21 21:26 98 F 65 20 136/91 H 90 L - My Orders Last 24 Hours: My Active Orders 05/31/21 21:30 Head wo Cont [CT] Stat 05/31/21 21:36 Forearm 2V Rt [CR] Stat Wrist Comp Min 3V Rt [CR] Stat - Assessment/Plan Last 24 Hours: My Active Orders 05/31/21 21:30 Head wo Cont [CT] Stat 05/31/21 21:36 Forearm 2V Rt [CR] Stat Wrist Comp Min 3V Rt [CR] Stat
[2021-06-01 01:41] VITALS: BP 154/72; PULSE 70
== END 2021-05-31 22:34 | disposition home or self-care (01) ==
LOC: CC.ED 21:15
DX: S52.601A Unspecified fracture of lower end of right ulna, initial encounter for closed fracture (principal); I48.91 Unspecified atrial fibrillation; E78.00 Pure hypercholesterolemia, unspecified; I10 Essential (primary) hypertension; J45.909 Unspecified asthma, uncomplicated; Z88.6 Allergy status to analgesic agent; Z91.013 Allergy to seafood; Z88.0 Allergy status to penicillin; Z88.1 Allergy status to other antibiotic agents; Z88.8 Allergy status to other drugs, medicaments and biological substances; Z88.2 Allergy status to sulfonamides; Z79.01 Long term (current) use of anticoagulants; Z79.899 Other long term (current) drug therapy; W01.198A Fall on same level from slipping, tripping and stumbling with subsequent striking against other object, initial encounter; Y92.009 Unspecified place in unspecified non-institutional (private) residence as the place of occurrence of the external cause; S09.90XA Unspecified injury of head, initial encounter
CPT/HCPCS: 70450; 73090-RT; 99284; 99284-25

== ENCOUNTER 2021-07-30 09:38 | Emergency (ER) | payer MEDICARE, BC ==
[2021-07-30 09:41] VITALS: BP 135/91; PULSE 88
[2021-07-30 10:19] LABS: CHLORIDE,CL 99 mEq/L (98-106); SODIUM,NA 137 mEq/L (136-145)
--- NOTE | 2021-07-30 10:44 | EDM.PDOC ---
ED HPI GENERAL MEDICAL PROBLEM - General Chief Complaint: General Stated Complaint: "cold" Time Seen by Provider: 07/30/21 09:55 Source of Information: Reports: Patient History Limitations: Reports: No Limitations - History of Present Illness INITIAL COMMENTS - FREE TEXT/NARRATIVE: Siena is an 89 year old female who presents to ER with feeling chilled. States woke up at 0300 with chills and was shaking and couldn't get warmed back up. States went out to sit by the fireplace to be comfortable. Continues to feel chilled this am but really has no other symptoms. Denies cough, chest congestion, shortness of breath, nausea or vomiting. No sore throat, sinus congestion or ear pain. No urinary symptoms. Relates feels like when she had pneumonia in the past. Has been eating and drinking well. Onset: Today, Sudden Duration: Hour(s):, Constant Location: Reports: Generalized Quality: Reports: Ache Severity: Moderate Associated Symptoms: Reports: Fever/Chills, Malaise. Denies: Confusion, Chest Pain, Cough, Loss of Appetite, Nausea/Vomiting, Shortness of Breath, Weakness - Related Data Allergies Allergy/AdvReac Type Severity Reaction Status Date / Time rofecoxib [From Vioxx] Allergy Airway Verified 07/30/21 09:41 Tightness shellfish derived Allergy Cannot Verified 07/30/21 09:41 Remember amoxicillin AdvReac Diarrhea Verified 07/30/21 09:41 azithromycin AdvReac Dizziness Verified 07/30/21 09:41 propoxyphene napsylate AdvReac Stomach Verified 07/30/21 09:41 [From Darvocet-N 100] Upset quinapril HCl [From Accupril] AdvReac Cough Verified 07/30/21 09:41 sulfamethoxazole AdvReac Dizziness Verified 07/30/21 09:41 [From Bactrim] trimethoprim [From Bactrim] AdvReac Dizziness Verified 07/30/21 09:41 Home Meds: Home Meds Losartan [Cozaar] 100 mg PO DAILY 11/11/13 [History] Olopatadine [Patanol 0.1% Ophth Soln] 1 drop EYEBOTH BEDTIME PRN 11/11/13 [History] Potassium Chloride 20 meq PO DAILY 02/26/14 [History] Apixaban [Eliquis] 2.5 mg PO BID 08/23/14 [History] Albuterol Sulfate 3 ml INH Q4H PRN 10/28/17 [History] Albuterol Sulfate [Proair Hfa] 2 puff INH BID PRN 10/28/17 [History] Isosorbide Mononitrate [Imdur] 60 mg PO DAILY 10/28/17 [History] Acetaminophen [Tylenol Extra Strength] 500 mg PO Q6H PRN 12/31/17 [History] cloNIDine [Catapres] 0.1 mg PO Q2H PRN #30 tablet 01/02/18 [Rx] Cholecalciferol (Vitamin D3) [Vitamin D3] 2,000 unit PO DAILY 08/02/18 [History] Pantoprazole Sodium 40 mg PO DAILY 01/28/20 [History] Famotidine [Acid Controller] 20 mg PO BEDTIME 04/24/20 [History] atorvaSTATin [Lipitor] 10 mg PO BEDTIME 04/24/20 [History] Metoprolol Tartrate 12.5 mg PO BID 05/23/21 [History] Ondansetron [Zofran ODT] 4 mg PO Q6H PRN 05/23/21 [History] Triamcinolone Acetonide [Nasacort AQ [place]] 1 spray NASBOTH DAILY PRN 05/23/21 [History] dilTIAZem HCL [Cartia Xt] 300 mg PO DAILY 05/23/21 [History] Cefuroxime [Ceftin] 250 mg PO BID #20 tab 07/30/21 [Rx] Past Medical History HEENT History: Reports: Cataract, Hard of Hearing Cardiovascular History: Reports: Afib, Arrhythmia, Heart Murmur, High Cholesterol, Hypertension Respiratory History: Reports: Asthma Gastrointestinal History: Reports: None, Hiatal Hernia Genitourinary History: Reports: UTI, Recurrent Musculoskeletal History: Reports: Arthritis, Back Pain, Chronic, Fracture, Osteoarthritis, Osteoporosis Psychiatric History: Reports: None Endocrine/Metabolic History: Reports: Osteoporosis, Vitamin D Deficiency Hematologic History: Reports: Anemia, B12 Deficiency, Other (See Below) Other Hematologic History: plasma transfusion Oncologic (Cancer) History: Reports: None - Infectious Disease History Infectious Disease History: Reports: Chicken Pox, Shingles - Past Surgical History HEENT Surgical History: Reports: Cataract Surgery GI Surgical History: Reports: Colonoscopy, EGD, Hernia Repair/Other, Benedicto Fundoplication Musculoskeletal Surgical History: Reports: Shoulder Replacement, Other (See Below) Other Musculoskeletal Surgeries/Procedures:: broke R arm 2020 Oncologic Surgical History: Reports: Biopsy of Breast Social & Family History - Family History Family Medical History: No Pertinent Family History - Tobacco Use Tobacco Use Status *Q: Never Tobacco User - Caffeine Use Caffeine Use: Reports: None, Coffee Other Caffeine Use: 1 cup a day - Recreational Drug Use Recreational Drug Use: No ED ROS GENERAL - Review of Systems Review Of Systems: See Below Constitutional: Reports: Fever, Chills, Malaise. Denies: Weakness, Fatigue, Decreased Appetite HEENT: Denies: Ear Pain, Sinus Problem, Throat Pain, Vertigo Respiratory: Denies: Shortness of Breath, Cough Cardiovascular: Denies: Chest Pain, Edema, Lightheadedness Endocrine: Denies: Fatigue GI/Abdominal: Denies: Abdominal Pain, Constipation, Diarrhea, Nausea, Vomiting : Reports: No Symptoms Musculoskeletal: Reports: No Symptoms Skin: Reports: No Symptoms Neurological: Reports: No Symptoms ED EXAM, GENERAL - Physical Exam Exam: See Below Exam Limited By: No Limitations General Appearance: Alert, WD/WN, No Apparent Distress Ears: Normal External Exam, Normal TMs Nose: Normal Inspection, Normal Mucosa, No Blood Throat/Mouth: Normal Inspection, Normal Oropharynx Head: Normocephalic Neck: Normal Inspection, Supple, Non-Tender Respiratory/Chest: No Respiratory Distress, Normal Breath Sounds, Crackles (RLL) Cardiovascular: Regular Rate, Rhythm GI/Abdominal: Normal Bowel Sounds, Soft, Non-Tender Extremities: Normal Inspection, No Pedal Edema Neurological: Alert, Oriented Skin Exam: Warm, Dry Course - Vital Signs Last Recorded V/S: Last Vital Signs Temp 100.6 F 07/30/21 09:39 Pulse 88 07/30/21 09:39 Resp 16 07/30/21 09:39 BP 135/91 H 07/30/21 09:39 Pulse Ox 94 L 07/30/21 09:39 - Orders/Labs/Meds Orders: Active Orders 24 hr Category Date Time Status Chest 2V [CR] Stat Exams 07/30/21 10:15 Taken Labs: Laboratory Tests 07/30/21 07/30/21 07/30/21 Range/Units 09:51 09:55 09:55 WBC 6.1 (4.0-11.0) 10^3/uL RBC 4.07 (4.00-5.50) x10^6/uL Hgb 13.2 (12.0-16.0) g/dL Hct 38.8 (37.0-47.0) % MCV 95.3 (83.0-97.0) fL MCH 32.4 H (27.0-32.0) pg MCHC 34.0 (32.0-36.0) g/dL RDW Coeff of [place] 13.4 (11.0-15.0) % Plt Count 163 (150-400) 10^3/uL Immature Gran % (Auto) 0.2 (0.0-4.9) % Neut % (Auto) 86.1 H (41-71) % Lymph % (Auto) 9.0 L (24-44) % [place] % (Auto) 4.1 (0-10) % Eos % (Auto) 0.3 (0-6) % Baso % (Auto) 0.3 (0-1) % Neut # (Auto) 5.26 (1.80-8.00) x10^3/uL Lymph # (Auto) 0.55 L (0.60-5.00) 10^3/uL [place] # (Auto) 0.25 (0.00-1.50) 10^3/uL Eos # (Auto) 0.02 (0.00-1.50) 10^3/uL Baso # (Auto) 0.02 (0.00-0.50) 10^3/uL Immature Gran # (Auto) 0.01 (0.00-0.49) 10^3/uL Sodium 137 (136-145) mEq/L Potassium 3.7 (3.5-5.0) mEq/L Chloride 99 (98-106) mEq/L Carbon Dioxide 27 (21-32) mmol/L BUN 18 (7-18) mg/dL Creatinine 0.9 (0.6-1.0) mg/dL Est Cr Clr Drug Dosing 24.88 mL/min Estimated GFR (MDRD) 59 L (>=60) mL/min Glucose 107 H (75-99) mg/dL Calcium 8.6 (8.4-10.1) mg/dL Total Bilirubin 1.4 H (0.0-1.0) mg/dL AST 18 (15-37) U/L ALT 22 (12-78) U/L Alkaline Phosphatase 99 (46-116) U/L C-Reactive Protein < 0.2 L (0.2-0.8) mg/dL Total Protein 7.0 (6.4-8.2) g/dL Albumin 3.7 (3.4-5.0) g/dL Urine Color Yellow (YELLOW) Urine Appearance Clear (CLEAR) Urine pH 7.0 (4.5-8.0) Ur Specific [place] 1.020 (1.003-1.020) Urine Protein Negative (NEGATIVE) mg/dL Urine Glucose (UA) Negative (NEGATIVE) mg/dL Urine Ketones Negative (NEGATIVE) mg/dL Urine Occult Blood Trace-lysed H (NEGATIVE) Urine Nitrite Negative (NEGATIVE) Urine Bilirubin Negative (NEGATIVE) Urine Urobilinogen 0.2 (0.2-1.0) EU/dL Ur Leukocyte Esterase Negative (NEGATIVE) Urine RBC 0-5 (0-5) /HPF Urine WBC 0-5 (0-5) /HPF Ur Squamous Epith Cells Few H (NOT SEEN) /HPF SARS CoV-2 RNA Rapid DODIE (NEGATIVE) 07/30/21 Range/Units 09:55 WBC (4.0-11.0) 10^3/uL RBC (4.00-5.50) x10^6/uL Hgb (12.0-16.0) g/dL Hct (37.0-47.0) % MCV (83.0-97.0) fL MCH (27.0-32.0) pg MCHC (32.0-36.0) g/dL RDW Coeff of [place] (11.0-15.0) % Plt Count (150-400) 10^3/uL Immature Gran % (Auto) (0.0-4.9) % Neut % (Auto) (41-71) % Lymph % (Auto) (24-44) % [place] % (Auto) (0-10) % Eos % (Auto) (0-6) % Baso % (Auto) (0-1) % Neut # (Auto) (1.80-8.00) x10^3/uL Lymph # (Auto) (0.60-5.00) 10^3/uL [place] # (Auto) (0.00-1.50) 10^3/uL Eos # (Auto) (0.00-1.50) 10^3/uL Baso # (Auto) (0.00-0.50) 10^3/uL Immature Gran # (Auto) (0.00-0.49) 10^3/uL Sodium (136-145) mEq/L Potassium (3.5-5.0) mEq/L Chloride (98-106) mEq/L Carbon Dioxide (21-32) mmol/L BUN (7-18) mg/dL Creatinine (0.6-1.0) mg/dL Est Cr Clr Drug Dosing mL/min Estimated GFR (MDRD) (>=60) mL/min Glucose (75-99) mg/dL Calcium (8.4-10.1) mg/dL Total Bilirubin (0.0-1.0) mg/dL AST (15-37) U/L ALT (12-78) U/L Alkaline Phosphatase (46-116) U/L C-Reactive Protein (0.2-0.8) mg/dL Total Protein (6.4-8.2) g/dL Albumin (3.4-5.0) g/dL Urine Color (YELLOW) Urine Appearance (CLEAR) Urine pH (4.5-8.0) Ur Specific [place] (1.003-1.020) Urine Protein (NEGATIVE) mg/dL Urine Glucose (UA) (NEGATIVE) mg/dL Urine Ketones (NEGATIVE) mg/dL Urine Occult Blood (NEGATIVE) Urine Nitrite (NEGATIVE) Urine Bilirubin (NEGATIVE) Urine Urobilinogen (0.2-1.0) EU/dL Ur Leukocyte Esterase (NEGATIVE) Urine RBC (0-5) /HPF Urine WBC (0-5) /HPF Ur Squamous Epith Cells (NOT SEEN) /HPF SARS CoV-2 RNA Rapid DODIE Negative (NEGATIVE) - Re-Assessments/Exams Free Text/Narrative Re-Assessment/Exam: 07/30/21 Labs are all normal. Chest xray appears to have infiltrate to RLL. Departure - Departure Time of Disposition: 10:41 Disposition: Home, Self-Care 01 Condition: Good Clinical Impression: RLL pneumonia - Discharge Information *PRESCRIPTION DRUG MONITORING PROGRAM REVIEWED*: No *COPY OF PRESCRIPTION DRUG MONITORING REPORT IN PATIENT CORKY: No Prescriptions: Cefuroxime [Ceftin] 250 mg PO BID #20 tab Instructions: Community-Acquired Pneumonia, Adult Referrals: PCP,None [Primary Care Provider] - Forms: ED Department Discharge Additional Instructions: 1. Rest 2. Push fluids 3. Tylenol for fever 4. Ceftin 250 mg twice a day for 10 days 5. Call if any changes or concerns. Sepsis Event Note (ED) - Focused Exam Vital Signs: Vital Signs Temp Pulse Resp BP Pulse Ox 07/30/21 09:39 100.6 F 88 16 135/91 H 94 L - My Orders Last 24 Hours: My Active Orders 07/30/21 10:15 Chest 2V [CR] Stat - Assessment/Plan Last 24 Hours: My Active Orders 07/30/21 10:15 Chest 2V [CR] Stat
== END 2021-07-30 10:59 | disposition home or self-care (01) ==
LOC: CC.ED 09:38
DX: J18.9 Pneumonia, unspecified organism (principal); I48.91 Unspecified atrial fibrillation; E78.00 Pure hypercholesterolemia, unspecified; I10 Essential (primary) hypertension; Z79.01 Long term (current) use of anticoagulants; Z79.899 Other long term (current) drug therapy; Z88.0 Allergy status to penicillin; Z88.1 Allergy status to other antibiotic agents; Z88.8 Allergy status to other drugs, medicaments and biological substances; Z20.822 Contact with and (suspected) exposure to COVID-19
CPT/HCPCS: 36415; 71046; 80053; 81001; 85025; 86140; 99284; 99284-25; U0002

== ENCOUNTER 2021-12-26 19:53 | Emergency (ER) | payer MEDICARE, BC ==
[2021-12-26] MEDS ORDERED: Ondansetron 4 MG Tab.DIS PO ONE (20:02)
[2021-12-26] MEDS ORDERED: cloNIDine 0.1 MG Tab PO ONE (20:13)
[2021-12-26 21:04] VITALS: BP 172/123; PULSE 102
[2021-12-26] MEDS ORDERED: Take Home: Ondansetron 4 MG Tab.DIS, 2 Tab Pack PO ONE (21:17)
== END 2021-12-26 21:30 | disposition home or self-care (01) ==
LOC: CC.ED 19:53
DX: I10 Essential (primary) hypertension (principal); R11.2 Nausea with vomiting, unspecified; E78.00 Pure hypercholesterolemia, unspecified; Z79.899 Other long term (current) drug therapy; Z88.8 Allergy status to other drugs, medicaments and biological substances; Z88.0 Allergy status to penicillin; Z88.5 Allergy status to narcotic agent; Z88.2 Allergy status to sulfonamides
CPT/HCPCS: 36415; 71046; 80053; 84484; 85025; 93005; 99284-25; A9270-GY